=== PATIENT | female | born 1980 | race Caucasian/White ===

== ENCOUNTER 2019-10-23 09:38 | Emergency (ER) | payer SELFPAY ==
--- NOTE | 2019-10-23 09:48 | ED_ITS ---
HPI - General Adult General: Chief complaint: Nausea/Vomiting/Diarrhea Stated complaint: N/V Time Seen by Provider: 10/23/19 09:43 History of Present Illness: HPI narrative: 39 yo female complains of recurrent vomiting whenever she eats. She denies any hematochezia. No melena hematemesis coffee-ground emesis. She denies any fever. Associated symptoms: Reports nausea and vomiting; Deny chest pain, dyspnea, malaise or rash Review of Systems Const: Denies: fever, chills, body aches, change in appetite, fatigue or malaise ENMT: Denies: throat pain, ear pain, nasal discharge or nasal congestion Card: Denies: chest pain, edema, shortness of breath on exertion or shortness of breath when lying down Resp: Denies: shortness of breath, productive cough or non-productive cough GI: Reports: nausea and vomiting; Denies: abdominal pain, vomiting blood, coffee grounds in vomit, diarrhea, constipation, bloating, blood in stool or black tarry stool : Denies: flank pain, difficulty urinating, painful urination, urinary frequency or urinary urgency Skin/Breast: Denies: rash or itching PFS ED PFSH: Social History (Updated 09/06/19 @ 10:49 by Danisha Choudhury LPN) Smoking and tobacco status: never smoked Physical Exam Const: COMMON NORMALS: no apparent distress GENERAL APPEARANCE: cooperative and comfortable ORIENTATION/CONSCIOUSNESS: Yes awake, Yes oriented to person, Yes oriented to place and Yes oriented to time HENMT: COMMON NORMALS: normocephalic, head/scalp atraumatic, hearing grossly normal bilaterally, external ears normal, EAC's normal, TM's normal bilaterally, nasal mucous membranes and turbinates normal, moist oral mucous membranes and oropharynx normal HEAD & SCALP: normocephalic and atraumatic NOSE: nasal mucous membranes and turbinates normal EXTERNAL EAR: Yes external ears normal EXTERNAL AUDITORY CANAL: EAC's normal TYMPANIC MEMBRANE: TM's normal bilaterally Eye: COMMON NORMALS: PERRL, EOMs intact bilaterally, conjunctivae normal and no scleral icterus CONJUNCTIVA: Yes conjunctivae normal PUPIL: Yes PERRL Neck/C-Spine: COMMON NORMALS: full ROM, no lymphadenopathy, supple and no JVD Lymph: LYMPHATIC: no lymphadenopathy noted and no lymphedema noted Resp: COMMON NORMALS: normal respiratory effort, no retractions, no use of accessory muscles and clear to auscultation bilaterally AUSCULTATION: clear to auscultation bilaterally Cardio: COMMON NORMALS: no JVD, regular rate, regular rhythm and no murmurs RATE: regular rate RHYTHM: regular rhythm GI: COMMON NORMALS: soft to palpation and no hepatosplenomegaly AUSCULTATION: Yes normoactive bowel sounds PALPATION: Yes soft, Yes tender (Minimally tender throughout the abdomen no guarding no rebound no rigidity no peritoneal signs), No guarding, No rigid and Yes no hepatosplenomegaly Extremity: COMMON NORMALS: normal to inspection, normal capillary refill, no clubbing, cyanosis or edema, no calf tenderness and no pedal edema Neuro: SENSORIUM/ORIENTATION: Yes oriented to person, Yes oriented to place and Yes oriented to time Skin: COMMON NORMALS: no rashes or lesions noted GENERAL SKIN EXAM: no rashes or lesions noted Course Vital Signs: Vital signs: Vital Signs Temperature 98.7 F 10/23/19 09:51 Pulse Rate 75 10/23/19 11:01 Respiratory Rate 16 10/23/19 11:01 Blood Pressure 148/85 10/23/19 11:01 Pulse Oximetry 97 10/23/19 11:01 MDM - General Adult MDM Narrative: Medical decision making narrative: Exam does not show an acute abdomen. Patient given IV fluids feeling much better will discharge home on Zofran. Incidentally she does have a bladder infection started on nitrofurantoin for that continue the famotidine. Follow-up with primary care physician or return to the emergency room as not begin to improve. Clear liquid diet for the next 24-48hours. Lab Data: Labs: Lab Results 10/23/19 10/23/19 10/23/19 Range/Units 09:55 09:55 10:07 WBC 6.1 (4.0-10.0) 10^3/ uL RBC 4.78 (4.1-5.3) 10^6/u L Hgb 14.5 (11.5-15.3) g/dL Hct 43.5 (37.0-47.0) % MCV 91.0 (81-99) fL MCH 30.3 (28.0-34.0) pg MCHC 33.3 (30.0-36.0) g/dL RDW 12.0 L (12.1-15.1) % Plt Count 264 (130-400) 10^3/c mm MPV 10.1 (7.4-10.4) fL Neut % (Auto) 69.0 % Lymph % (Auto) 23.7 % [place] % (Auto) 5.7 % Eos % (Auto) 0.7 % Baso % (Auto) 0.7 % Neut # (Auto) 4.2 (1.8-7.7) 10^3/u L Lymph # (Auto) 1.5 (0.8-4.8) 10^3/u L [place] # (Auto) 0.4 (0.2-0.9) 10^3/u L Eos # (Auto) 0.0 (0.0-0.8) 10^3/u L Baso # (Auto) 0.0 (0.0-0.1) 10^3/u L Nucleated RBC % (a uto) 0 % Nucleated RBCs # 0.0 /100WBC Sodium 140 (136-145) mmol/L Potassium 3.4 L (3.5-5.1) mmol/L Chloride 101 (98-107) mmol/L Carbon Dioxide 24 (22-29) mmol/L Anion Gap 18.4 (5-19) BUN 6 (6-20) mg/dL Creatinine 0.5 (0.5-0.9) mg/dL GFR Calculation 137.4 H (90-130) mL/min Glucose 117 H (65-115) mg/dL Calculated Osmolal ity 287 (285-295) mOsm/k g Calcium 10.1 (8.5-10.5) mg/dL Total Bilirubin 0.8 (0.15-1.2) mg/dL AST 15 (0-32) U/L ALT 23 (0-33) U/L Alkaline Phosphata se 43 (35-105) IU/L Total Protein 7.6 (6.6-8.7) g/dL Albumin 4.6 (3.5-5.2) g/dL Globulin 3.0 (1.3-4.6) g/dL Urine Color Straw (Yellow) Urine Appearance Sl hazy (CLEAR) Urine pH 7.0 (5-7) Ur Specific Gravit y 1.005 (1.005-1.030) Urine Protein Neg (Negative) Urine Glucose (UA) Norm (Normal) Urine Ketones Negative (Negative) Urine Blood Neg (Negative) Urine Nitrate Negative (Negative) Urine Bilirubin Neg (NEGATIVE) Urine Urobilinogen Norm (Negative) mg/dL Ur Leukocyte Saba ase 2+ H (Negative) Urine RBC None (0-2) /hpf Urine WBC 10-15 H (0-5) /hpf Ur Squamous Epith Cells 0-4 H (0-5) Urine Bacteria 1+ H (NONE) Discharge Plan Discharge Patient Disposition: Home, Self-Care Clinical Impression: Gastroenteritis, Cystitis Condition: Stable Prescriptions: New Zofran 4 mg tablet 4 mg PO Q6H PRN (Reason: nausea and vomiting) Qty: 20 RF: 0 nitrofurantoin macrocrystal 100 mg capsule 100 mg PO BID 7 Days Qty: 14 RF: 0 No Action famotidine [Pepcid AC] 10 mg tablet 10 mg PO QDAY RF: 0 azithromycin 250 mg tablet See Rx Instructions PO .COMPLEX Qty: 6 RF: 0 Discharge Orders: Discharge Order (Routine); Ordered 10/23/19 Ordered By: Trevor Montez Referrals: [facility] [Other] Discharge Diet: Clear Liquid Discharge Activity: Increase activity as tolerated Patient Instructions: Clear Liquid Diet (ED) Activity Restrictions/Additional Instructions: Clear liquid diet for 24 to 48 hours and advance as tolerated Discharge Date/Time: 10/23/19 11:01 Coding Level of Care Code ED Milk Sampler for Clifton Werner
[2019-10-23 09:49] VITALS: BMI 31.1
[2019-10-23 09:51] VITALS: BP 162/101; PULSE 93; RESP 18; TEMP 37.1; O2SAT 98
[2019-10-23 10:04] LABS: Basophils % 0.7 %; Eosinophils % 0.7 %; Hematocrit 43.5 % (37.0-47.0); Hemoglobin 14.5 g/dL (11.5-15.3); Lymphocytes # 1.5 10^3/uL (0.8-4.8); Lymphocytes % 23.7 %; Mean Corpuscular HGB Conc 33.3 g/dL (30.0-36.0); Mean Corpuscular Hemoglobin 30.3 pg (28.0-34.0); Mean Platelet Volume 10.1 fL (7.4-10.4); Monocytes # 0.4 10^3/uL (0.2-0.9); Monocytes % 5.7 %; Neutrophils # 4.2 10^3/uL (1.8-7.7); Nucleated Red Blood Cells % 0 %; Platelet Count 264 10^3/cmm (130-400); Red Blood Count 4.78 10^6/uL (4.1-5.3); White Blood Count 6.1 10^3/uL (4.0-10.0)
[2019-10-23] MEDS: sodium chloride 0.9% 1,000 ML 999 ML IV (10:10)
[2019-10-23] MEDS: sodium chlor 0.9% + KCl 20 mEq 20 MEQ/1,000 ML BAG 125 MEQ IV (10:10)
[2019-10-23] MEDS: ondansetron 2 mg/ML SDV 2 mL 4 MG IVP (10:10)
--- NOTE | 2019-10-23 10:11 | PC.NURSE ---
Urine collected by roosevelt balbuena
[2019-10-23 10:16] LABS: Alanine Aminotransferase 23 U/L (0-33); Albumin Level 4.6 g/dL (3.5-5.2); Alkaline Phosphatase 43 IU/L (35-105); Anion Gap 18.4 (5-19); Aspartate Amino Transferase 15 U/L (0-32); Blood Urea Nitrogen 6 mg/dL (6-20); Calcium 10.1 mg/dL (8.5-10.5); Carbon Dioxide 24 mmol/L (22-29); Chloride 101 mmol/L (98-107); Glomerular Filtration Rate 137.4 mL/min (90-130); Glucose 117 mg/dL (65-115); Osmolality Calculated 287 mOsm/kg (285-295); Potassium 3.4 mmol/L (3.5-5.1); Sodium 140 mmol/L (136-145); Total Bilirubin 0.8 mg/dL (0.15-1.2); Total Protein 7.6 g/dL (6.6-8.7)
[2019-10-23 10:28] LABS: Add Urine Microscopic? YES; Bilirubin Urine Neg (NEGATIVE); Blood Urine Neg (Negative); Glucose Urine UA Norm (Normal); Ketones Urine Negative (Negative); Leukocyte Esterase Urine 2+ (Negative); Nitrate Urine Negative (Negative); Protein Urine Neg (Negative); Specific Gravity, Urine 1.005 (1.005-1.030); Urine Appearance SL Hazy (CLEAR); Urine Color Straw (Yellow); Urobilinogen Urine Norm (Negative)
[2019-10-23 10:33] LABS: Add Urine Culture? No; Bacteria Urine 1+; Squamous Epithelial Cell Urine 0-4 (0-5)
[2019-10-23 11:01] VITALS: BP 148/85; PULSE 75; RESP 16; O2SAT 97
== END 2019-10-23 11:01 | disposition home or self-care (01) ==
PROVIDERS: Emergency Provider Family Medicine
DX: K52.9 Noninfective gastroenteritis and colitis, unspecified (principal); N30.90 Cystitis, unspecified without hematuria
CPT/HCPCS: 12345; 36415; 80053; 81001; 85025; 96365; 96375; 99282; 99283; J2405; J7030

== ENCOUNTER → 2019-11-09 16:48 | Outpatient (BNVA) | payer SELFPAY | PROVIDERS: Visit Provider Nurse Practitioner Family | DX: R11.2 Nausea with vomiting, unspecified (principal) | CPT/HCPCS: 81000; 81025 ==

== ENCOUNTER 2019-11-22 19:45 | Emergency (ER) | payer SELFPAY ==
[2019-11-22 20:08] VITALS: BP 147/100; PULSE 77; RESP 17; TEMP 36.8; O2SAT 98; BMI 29.8
--- NOTE | 2019-11-22 20:54 | PC.NURSE ---
PATIENT STATES SHE HAS BEEN HAVING THE NAUSEA/COUGHING/VOMITING FOR THE LAST THREE MONTHS. PATIENT STATES SHE IS NOT HAVING PAIN TODAY BUT THAT SHE HAD PAIN YESTERDAY BILATERAL LOWER QUADRANTS IN THE ABDOMEN.
[2019-11-22 20:58] VITALS: BP 140/78; PULSE 76; RESP 16; O2SAT 98
--- NOTE | 2019-11-22 21:12 | ED_ITS ---
HPI - Nausea/Vomiting/Diarrhea General: Chief complaint: Nausea/Vomiting/Diarrhea Stated complaint: n/v x 1 month Time Seen by Provider: 11/22/19 20:51 Source: patient Mode of arrival: ambulatory Limitations: no limitations History of Present Illness: HPI Narrative: 39-year-old female patient who presents to the emergency department with complaints of vomiting after coughing. The patient states that she coughs so hard that she eventually vomits. During her coughing fits also she has some incontinence of urine. No fever, no shortness of breath, no chest pain. No abdominal pain. No epigastric pain. No prior history of dyspepsia. She was seen here in this ED in the past and was told she had a UTI, but went to an urgent care and was diagnosed with gastritis and was given Pepcid. She says the Pepcid helped a little bit however symptoms are back again. Symptoms are usually worse after she eats. MD elicited complaint: nausea and vomiting Onset (ago): month(s) (1) Description of vomiting: food contents Associated nausea: Yes Associated abdominal pain: No Associated symtoms: Reports nausea; Denies change in vision, chest pain, dysuria, headache(s) or palpitations Review of Systems General: Reports: 10 or more systems reviewed and unremarkable except in HPI and below Const: Denies: fever, chills or body aches Eyes: Denies: change in vision or blurry vision ENMT: Denies: throat pain, enlarged tonsils, painful swallowing, hoarseness, mouth pain or swelling of lips/tongue Card: Denies: chest pain, palpitations, irregular heart rhythm, edema or swelling of feet/ankles Resp: Reports: non-productive cough; Denies: shortness of breath or productive cough GI: Reports: nausea : Denies: flank pain, difficulty urinating, painful urination, urinary frequency, urinary urgency or urinary hesitancy Musc: Denies: neck pain, back pain or extremity swelling Skin/Breast: Denies: rash, itching or redness Neuro: Denies: headache, numbness in extremities or weakness in extremities Endo: Denies: excessive urination, excessive thirst or tired all the time [facility] ED PFSH: Social History (Updated 09/06/19 @ 10:49 by Danisha Choudhury LPN) Smoking and tobacco status: former smoker Physical Exam Const: COMMON NORMALS: no apparent distress, average body habitus, oriented x3, no limitations, healthy appearing, alert and well nourished HENMT: COMMON NORMALS: normocephalic, head/scalp atraumatic and moist oral mucous membranes HEAD & SCALP: normocephalic and atraumatic Eye: COMMON NORMALS: PERRL, EOMs intact bilaterally, conjunctivae normal and no scleral icterus CONJUNCTIVA: Yes conjunctivae normal PUPIL: Yes PERRL Neck/C-Spine: COMMON NORMALS: full ROM, supple, no meningeal signs, no JVD and no carotid bruits Chest: COMMONS NORMALS: inspection of chest normal and palpation of chest normal Resp: COMMON NORMALS: normal respiratory effort, no retractions, no use of accessory muscles, clear to auscultation bilaterally and percussion normal AUSCULTATION: clear to auscultation bilaterally PERCUSSION: percussion normal Cardio: COMMON NORMALS: no JVD, regular rate, regular rhythm, S1 normal heart sound, S2 normal heart sound, no gallops, no clicks, no murmurs, no rub and peripheral pulses 2+ throughout RATE: regular rate RHYTHM: regular rhythm HEART SOUNDS: S1 normal and S2 normal PERIPHERAL PULSES: pulses 2+ throughout GI: COMMON NORMALS: normal to inspection, nondistended, normoactive bowel sounds, soft to palpation, non-tender, no hepatosplenomegaly, no masses and no bruits PALPATION: Yes soft and Yes no hepatosplenomegaly : COMMON NORMALS: Yes no CVA tenderness BLADDER/KIDNEY EXAM: Yes no CVA tenderness Back/Pelvis: COMMON NORMALS: no CVA tenderness Extremity: COMMON NORMALS: normal to inspection, full ROM, normal capillary refill, no calf tenderness and no pedal edema Neuro: COMMON NORMALS: oriented x3 SENSORIUM/ORIENTATION: Yes alert MENINGEAL SIGNS: Yes no meningeal signs Skin: COMMON NORMALS: no rashes or lesions noted, no wounds, skin turgor normal, no jaundice, no petechiae and no mottling GENERAL SKIN EXAM: no rashes or lesions noted and turgor normal Course Reevaluation(s): Reevaluation #1: Discussed her lab and imaging findings with her. Negative for acute findings. Explained that going by her symptoms she most likely has GERD as she coughs after eating. We will discharge her home with a prescription for a PPI and an H2 rakesh. She voiced understanding and is in agreement with the plan. Time: 22:55 Vital Signs: Vital signs: Vital Signs Temperature 98.3 F 11/22/19 20:08 Pulse Rate 66 11/22/19 22:48 Respiratory Rate 16 11/22/19 22:48 Blood Pressure 150/84 11/22/19 22:48 Pulse Oximetry 96 11/22/19 22:48 MDM - Nausea/Vomiting/Diarrhea MDM Narrative: Medical decision making narrative: Patient who presents to the emergency department with cough that is causing posttussive vomiting. Cough is usually aggravated by eating. Symptomatology is consistent with acid peptic disease. We will discharge her home on a PPI and an H2 receptor rakesh. She is advised to avoid spicy foods, acidic foods, caffeinated beverages, cigarettes. She is to follow-up with her primary care provider for further evaluation and management. Lab Data: Labs: Lab Results 11/22/19 11/22/19 11/22/19 Range/Units 20:20 20:20 20:57 WBC 8.9 (4.0-10.0) 10^3/ uL RBC 4.69 (4.1-5.3) 10^6/u L Hgb 14.2 (11.5-15.3) g/dL Hct 42.6 (37.0-47.0) % MCV 90.8 (81-99) fL MCH 30.3 (28.0-34.0) pg MCHC 33.3 (30.0-36.0) g/dL RDW 12.1 (12.1-15.1) % Plt Count 251 (130-400) 10^3/c mm MPV 10.7 H (7.4-10.4) fL Neut % (Auto) 69.2 % Lymph % (Auto) 23.2 % [place] % (Auto) 5.8 % Eos % (Auto) 1.0 % Baso % (Auto) 0.6 % Neut # (Auto) 6.2 (1.8-7.7) 10^3/u L Lymph # (Auto) 2.1 (0.8-4.8) 10^3/u L [place] # (Auto) 0.5 (0.2-0.9) 10^3/u L Eos # (Auto) 0.1 (0.0-0.8) 10^3/u L Baso # (Auto) 0.1 (0.0-0.1) 10^3/u L Nucleated RBC % (a uto) 0 % Nucleated RBCs # 0.0 /100WBC Sodium (136-145) mmol/L Potassium (3.5-5.1) mmol/L Chloride (98-107) mmol/L Carbon Dioxide (22-29) mmol/L Anion Gap (5-19) BUN (6-20) mg/dL Creatinine (0.5-0.9) mg/dL GFR Calculation (90-130) mL/min Glucose (65-115) mg/dL Calculated Osmolal ity (285-295) mOsm/k g Calcium (8.5-10.5) mg/dL Total Bilirubin (0.15-1.2) mg/dL AST (0-32) U/L ALT (0-33) U/L Alkaline Phosphata se (35-105) IU/L Total Protein (6.6-8.7) g/dL Albumin (3.5-5.2) g/dL Globulin (1.3-4.6) g/dL Lipase (13-60) U/L HCG, Qual (Negative) Urine Color Yellow (Yellow) Urine Appearance Clear (CLEAR) Urine pH 6.5 (5-7) Ur Specific Gravit y 1.000 L (1.005-1.030) Urine Protein Neg (Negative) Urine Glucose (UA) Norm (Normal) Urine Ketones Negative (Negative) Urine Blood Neg (Negative) Urine Nitrate Negative (Negative) Urine Bilirubin Neg (NEGATIVE) Urine Urobilinogen Norm (Negative) mg/dL Ur Leukocyte Saba ase Negative (Negative) Urine RBC None (0-2) /hpf Urine WBC None (0-5) /hpf Ur Squamous Epith Cells 0-4 H (0-5) Urine Bacteria Trace (NONE) Urine Opiates Scre en Negative (Negative) ng/mL Ur Barbiturates Sc reen Negative (Negative) ng/mL Ur Phencyclidine S crn Negative (Negative) ng/mL Ur Amphetamines Sc reen Negative (Negative) ng/mL U Benzodiazepines Scrn Negative (Negative) ng/mL Urine Cocaine Scre en Negative (Negative) ng/mL U Marijuana (THC) Screen Negative (Negative) ng/mL 11/22/19 11/22/19 Range/Units 20:57 20:57 WBC (4.0-10.0) 10^3/ uL RBC (4.1-5.3) 10^6/u L Hgb (11.5-15.3) g/dL Hct (37.0-47.0) % MCV (81-99) fL MCH (28.0-34.0) pg MCHC (30.0-36.0) g/dL RDW (12.1-15.1) % Plt Count (130-400) 10^3/c mm MPV (7.4-10.4) fL Neut % (Auto) % Lymph % (Auto) % [place] % (Auto) % Eos % (Auto) % Baso % (Auto) % Neut # (Auto) (1.8-7.7) 10^3/u L Lymph # (Auto) (0.8-4.8) 10^3/u L [place] # (Auto) (0.2-0.9) 10^3/u L Eos # (Auto) (0.0-0.8) 10^3/u L Baso # (Auto) (0.0-0.1) 10^3/u L Nucleated RBC % (a uto) % Nucleated RBCs # /100WBC Sodium 141 (136-145) mmol/L Potassium 3.4 L (3.5-5.1) mmol/L Chloride 104 (98-107) mmol/L Carbon Dioxide 25 (22-29) mmol/L Anion Gap 15.4 (5-19) BUN 6 (6-20) mg/dL Creatinine 0.6 (0.5-0.9) mg/dL GFR Calculation 111.3 (90-130) mL/min Glucose 100 (65-115) mg/dL Calculated Osmolal ity 288 (285-295) mOsm/k g Calcium 9.8 (8.5-10.5) mg/dL Total Bilirubin 0.5 (0.15-1.2) mg/dL AST 14 (0-32) U/L ALT 22 (0-33) U/L Alkaline Phosphata se 43 (35-105) IU/L Total Protein 7.5 (6.6-8.7) g/dL Albumin 4.7 (3.5-5.2) g/dL Globulin 2.8 (1.3-4.6) g/dL Lipase 31 (13-60) U/L HCG, Qual Negative (Negative) Urine Color (Yellow) Urine Appearance (CLEAR) Urine pH (5-7) Ur Specific Gravit y (1.005-1.030) Urine Protein (Negative) Urine Glucose (UA) (Normal) Urine Ketones (Negative) Urine Blood (Negative) Urine Nitrate (Negative) Urine Bilirubin (NEGATIVE) Urine Urobilinogen (Negative) mg/dL Ur Leukocyte Saba ase (Negative) Urine RBC (0-2) /hpf Urine WBC (0-5) /hpf Ur Squamous Epith Cells (0-5) Urine Bacteria (NONE) Urine Opiates Scre en (Negative) ng/mL Ur Barbiturates Sc reen (Negative) ng/mL Ur Phencyclidine S crn (Negative) ng/mL Ur Amphetamines Sc reen (Negative) ng/mL U Benzodiazepines Scrn (Negative) ng/mL Urine Cocaine Scre en (Negative) ng/mL U Marijuana (THC) Screen (Negative) ng/mL Imaging Data^: CXR: Attestation: I personally reviewed and interpreted this imaging study as arnel neil: My impression: Negative for acute findings Discharge Plan Discharge Patient Disposition: Home, Self-Care Clinical Impression: Gastroesophageal reflux disease, Post-tussive vomiting Condition: Stable Prescriptions: New pantoprazole 40 mg tablet,delayed release (DR/EC) 40 mg PO DAILY Qty: 14 RF: 0 albuterol sulfate 90 mcg/actuation HFA aerosol inhaler 4 inh INHALATION Q4H PRN (Reason: shortness of breath or wheezing) Qty: 8.5 RF: 0 Continued ondansetron HCl [Zofran] 4 mg tablet 4 mg PO Q6H PRN (Reason: nausea and vomiting) Qty: 20 RF: 0 nitrofurantoin monohyd/m-cryst 100 mg capsule RF: 0 Changed Pepcid AC 10 mg tablet 40 mg PO QDAY Qty: 30 RF: 0 Discharge Orders: Discharge Order (Routine); Ordered 11/22/19 Ordered By: Micah Baptiste Referrals: [facility] [Other] Patient Instructions: Diet for Ulcers and Gastritis (ED), Gastroesophageal Reflux Disease (ED) Activity Restrictions/Additional Instructions: Return for any new or worsening symptoms. Take the medications as prescribed. You may need to follow-up with your primary care provider to get testing for H. pylori which is a bacteria that causes stomach ulcers. You may also be referred for an upper GI endoscopy if your primary care provider feels it is necessary. Avoid acidic foods, spicy foods, caffeinated beverages, cigarettes. Follow-up with your primary care provider within 1 week. Coding Level of Care Code ED Chief Operator Hydroformer for Chg Fwd Exam Comprehensive
--- NOTE | 2019-11-22 21:19 | XR_ITS ---
WS: [id number] PORTABLE CHEST HISTORY: cough COMPARISON: 08/11/2012 Lungs are clear and well expanded. No pleural effusion or pneumothorax. Cardiac size: Normal. Mediastinum/Aorta: Normal mediastinum. No osseous abnormality seen. XR/XR chest 1V portable [id number] IMPRESSION: Unremarkable portable chest.
[2019-11-22 21:20] LABS: Amphetamines Screen Urine Negative (Negative); Barbiturates Screen Urine Negative (Negative); Benzodiazepines Screen Urine Negative (Negative); Cocaine Screen Urine Negative (Negative); Opiate Screen Urine Negative (Negative); PCP Screen Urine Negative (Negative); THC Screen Urine Negative (Negative)
[2019-11-22 21:21] LABS: Add Urine Culture? No; Bacteria Urine TRACE; Bilirubin Urine Neg (NEGATIVE); Blood Urine Neg (Negative); Glucose Urine UA Norm (Normal); Ketones Urine Negative (Negative); Leukocyte Esterase Urine Negative (Negative); Nitrate Urine Negative (Negative); Protein Urine Neg (Negative); Squamous Epithelial Cell Urine 0-4 (0-5); Urine Appearance Clear (CLEAR); Urine Color Yellow (Yellow); Urobilinogen Urine Norm (Negative); pH Urine 6.5 (5-7)
[2019-11-22 21:45] LABS: Basophils # 0.1 10^3/uL (0.0-0.1); Basophils % 0.6 %; Eosinophils # 0.1 10^3/uL (0.0-0.8); Hematocrit 42.6 % (37.0-47.0); Hemoglobin 14.2 g/dL (11.5-15.3); Lymphocytes # 2.1 10^3/uL (0.8-4.8); Lymphocytes % 23.2 %; Mean Corpuscular HGB Conc 33.3 g/dL (30.0-36.0); Mean Corpuscular Hemoglobin 30.3 pg (28.0-34.0); Mean Corpuscular Volume 90.8 fL (81-99); Mean Platelet Volume 10.7 fL (7.4-10.4); Monocytes # 0.5 10^3/uL (0.2-0.9); Monocytes % 5.8 %; Neutrophils # 6.2 10^3/uL (1.8-7.7); Neutrophils % 69.2 %; Nucleated Red Blood Cells % 0 %; Platelet Count 251 10^3/cmm (130-400); Red Blood Count 4.69 10^6/uL (4.1-5.3); Red Cell Distribution Width 12.1 % (12.1-15.1); White Blood Count 8.9 10^3/uL (4.0-10.0)
[2019-11-22 22:14] VITALS: BP 124/76; PULSE 75; RESP 16; O2SAT 97
[2019-11-22 22:35] LABS: Alanine Aminotransferase 22 U/L (0-33); Albumin Level 4.7 g/dL (3.5-5.2); Alkaline Phosphatase 43 IU/L (35-105); Anion Gap 15.4 (5-19); Aspartate Amino Transferase 14 U/L (0-32); Blood Urea Nitrogen 6 mg/dL (6-20); Calcium 9.8 mg/dL (8.5-10.5); Carbon Dioxide 25 mmol/L (22-29); Chloride 104 mmol/L (98-107); Globulin 2.8 g/dL (1.3-4.6); Glomerular Filtration Rate 111.3 mL/min (90-130); Glucose 100 mg/dL (65-115); Lipase 31 U/L (13-60); Osmolality Calculated 288 mOsm/kg (285-295); Potassium 3.4 mmol/L (3.5-5.1); Sodium 141 mmol/L (136-145); Total Bilirubin 0.5 mg/dL (0.15-1.2); Total Protein 7.5 g/dL (6.6-8.7)
[2019-11-22 22:40] LABS: HCG, Serum Qual Negative (Negative)
[2019-11-22 22:48] VITALS: BP 150/84; PULSE 66; RESP 16; O2SAT 96
[2019-11-22] MEDS: famotidine 20 mg Tablet 40 MG PO (23:13)
[2019-11-22] MEDS: pantoprazole DR 40 mg Tablet PO (23:13)
[2019-11-22 23:14] VITALS: BP 144/88; PULSE 63; RESP 16; O2SAT 97
== END 2019-11-22 23:16 | disposition home or self-care (01) ==
PROVIDERS: Emergency Medicine; Emergency Provider Family Medicine
DX: K21.9 Gastro-esophageal reflux disease without esophagitis (principal); R11.10 Vomiting, unspecified; Z87.891 Personal history of nicotine dependence
CPT/HCPCS: 12345; 36415; 71045; 80053; 80306; 81001; 83690; 84703; 85025; 99282; 99283

== ENCOUNTER 2020-02-19 19:39 | Emergency (ER) | payer SELFPAY ==
[2020-02-19 19:49] VITALS: BP 132/88; PULSE 84; RESP 18; TEMP 36.8; O2SAT 98; BMI 29.2
--- NOTE | 2020-02-19 20:07 | W.ED.HA ---
HPI - Headache General: Chief Complaint: Headache Stated Complaint: franklin Time Seen by Provider: 02/19/20 20:02 Source: patient Mode of arrival: ambulatory Limitations: no limitations History of Present Illness: HPI Narrative: 39-year-old female who states she had a headache that is been off and on over the last week and a half. States that it feels like her previous migraines and has have photophobia and phonophobia. States improved with rest. States her headache is currently 7 out of 10. She denies this being the worst headache of her life denies that it was sudden onset. Denies any vomiting or diarrhea. MD elicited complaint: headache and migraine Onset (ago): week(s) Onset description: gradually Severity: moderate Quality & Timing: aching Exacerbating factors: light and noise Relieving factors: rest Associated symptoms: Deny chest pain, fever(s), nausea, rash or vomiting Review of Systems Const: Denies: fever(s), chills, body aches or change in appetite Eyes: Denies: blurry vision or eye discomfort ENMT: Denies: throat pain or dental pain Card: Denies: chest pain Resp: Denies: dyspnea GI: Denies: abdominal pain, nausea, vomiting or diarrhea : Denies: dysuria Musc: Denies: neck pain or back pain Skin/Breast: Denies: rash Neuro: Reports: headache(s) Psych: Denies: depression Dilan/Lymph: Denies: easy bruising All/Imm: Denies: urticaria PFSH ED PFSH: Social History Smoking and tobacco status: former smoker Female Reproductive History: Date of last menstrual period: 02/02/20 Physical Exam Const: COMMON NORMALS: no acute distress, patient oriented x3 and healthy appearing HENMT: COMMON NORMALS: normocephalic and atraumatic HEAD & SCALP: normocephalic and atraumatic Eye: COMMON NORMALS: Equal, round and reactive pupils present and EOMs intact bilaterally PUPIL: Yes Equal, round and reactive pupils present Neck/C-Spine: COMMON NORMALS: full ROM and supple Chest: COMMONS NORMALS: normal inspection of the chest and normal palpation of entire chest wall Resp: COMMON NORMALS: normal respiratory effort, No retractions, No use of accessory muscles and clear to auscultation bilaterally AUSCULTATION: clear to auscultation bilaterally Cardio: COMMON NORMALS: regular rate, regular rhythm and No murmurs present (Cardio) RATE: regular rate RHYTHM: regular rhythm GI: COMMON NORMALS: Normal to inspection, nondistended, normoactive bowel sounds present, Soft to palpation, non-tender and no masses PALPATION: Yes Soft to palpation Extremity: COMMON NORMALS: normal to inspection and full ROM Neuro: COMMON NORMALS: patient oriented x3, moves all extremities and no focal motor deficits Psych: COMMON NORMALS: mental status grossly normal, Normal thought process present and cooperative THOUGHT PROCESS: Normal thought process present Skin: COMMON NORMALS: no rashes or lesions noted and no wounds GENERAL SKIN EXAM: no rashes or lesions noted Course Vital Signs: Vital signs: Vital Signs Temperature 98.3 F 02/19/20 19:49 Pulse Rate 81 02/19/20 20:36 Respiratory Rate 14 02/19/20 20:36 Blood Pressure 125/83 02/19/20 20:36 Pulse Oximetry 98 02/19/20 20:36 MDM - Headache MDM Narrative: Medical decision making narrative: Patient presents with a headache that is likely a migraine headache. She has no signs of meningitis or subarachnoid hemorrhage. Patient is stable for discharge and patient was given Reglan and Benadryl and Toradol here. She is to follow-up with her primary care doctor in 5 to 7 days and return to ER if worsening. She understands and agrees to plan. Discharge Plan Discharge Patient Disposition: Home Clinical Impression: Migraine Qualifiers: Migraine type: unspecified Status migrainosus presence: without status migrainosus Intractability: not intractable Qualified Code(s): G43.909 - Migraine, unspecified, not intractable, without status migrainosus Condition: Stable Prescriptions: No Action ondansetron HCl [Zofran] 4 mg tablet 4 mg PO Q6H PRN (Reason: nausea and vomiting) Qty: 20 RF: 0 nitrofurantoin monohyd/m-cryst 100 mg capsule RF: 0 pantoprazole 40 mg tablet,delayed release (DR/EC) 40 mg PO DAILY Qty: 14 RF: 0 Pepcid AC 10 mg tablet 40 mg PO QDAY Qty: 30 RF: 0 albuterol sulfate 90 mcg/actuation HFA aerosol inhaler 4 inh INHALATION Q4H PRN (Reason: shortness of breath or wheezing) Qty: 8.5 RF: 0 Discharge Orders: Discharge Order (Routine); Ordered 02/19/20 Ordered By: Marc Yuan Discharge Diet: Advance as tolerated Discharge Activity: Resume usual activity Patient Instructions: Migraine Headache (ED) Discharge Date/Time: 02/19/20 20:36 Coding Level of Care Code ED Petroleum Refinery Operator for Chg Fwd Exam Comprehensive
[2020-02-19] MEDS: metoclopramide 5 mg/mL SDV 2 mL 10 MG IM (20:19)
[2020-02-19] MEDS: ketorolac 60 mg/2 mL INJ IM (20:19)
[2020-02-19] MEDS: diphenhydrAMINE 50 mg/mL SDV 1mL IM (20:19)
[2020-02-19 20:36] VITALS: BP 125/83; PULSE 81; RESP 14; O2SAT 98
== END 2020-02-19 20:36 | disposition home or self-care (01) ==
PROVIDERS: Emergency Provider Emergency Medicine
DX: G43.909 Migraine, unspecified, not intractable, without status migrainosus (principal); Z87.891 Personal history of nicotine dependence
CPT/HCPCS: 12345; 96372; 99281; 99283; J1200; J1885; J2765

== ENCOUNTER 2020-02-24 11:58 | Emergency (ER) | payer SELFPAY ==
[2020-02-24 12:03] VITALS: BP 159/101; PULSE 86; RESP 16; TEMP 36.7; O2SAT 96; BMI 29.2
[2020-02-24 12:06] VITALS: RESP 18
--- NOTE | 2020-02-24 12:35 | W.ED.ANXIETY ---
HPI - Anxiety General: Chief Complaint: Anxiety Stated Complaint: ANXIETY Time Seen by Provider: 02/24/20 12:10 History of Present Illness: HPI narrative: 39-year-old female patient presents to the emergency department with increased anxiety. She reports started counseling approximately 10 days ago. She reports current custody wiseman with her child in a divorce case. She reports increased anxiety, not able to sleep, she does not wish to go to the stress unit at this time. She denies suicidal/homicidal ideation plans or thoughts. Her mother reports she has been talking to herself. Patient reports she is hearing voices but is on occasion. She reports voices are telling her soon-to-be ex-spouse may obtain custody of her son. She is requesting something to help with anxiety. She reports is currently not on any medication for anxiety. She denies illicit substance use. She denies smoking. complaint: anxiety and heart racing Onset (ago): week(s) (2) Severity: moderate Quality: intermittent Provoking factors: emotional stress Relieving factors: deep breaths Exacerbating factors: thinking about event Associated symptoms: Reports no associated symptoms; Deny chest pain, chills, diaphoresis, fever(s), headache(s), nausea, palpitations or vomiting Review of Systems General: Reports: 10 or more systems reviewed and unremarkable except in HPI and below Const: Denies: fever(s), chills or diaphoresis Eyes: Denies: blurry vision or eye redness ENMT: Denies: throat pain, dental pain or disequilibrium Card: Denies: chest pain, palpitations or irregular heart rhythm Resp: Denies: dyspnea, productive cough, non-productive cough or wheezing GI: Denies: abdominal pain, nausea or vomiting : Denies: difficulty voiding or dysuria Musc: Denies: back pain Skin/Breast: Denies: rash or pruritus Neuro: Denies: headache(s), weakness in extremities or behavioral changes Psych: Reports: anxiety, sleeping less, difficulty concentrating and auditory hallucinations; Denies: visual hallucinations, tactile hallucinations, suicidal ideation or homicidal ideation Dilan/Lymph: Denies: easy bruising PFSH ED PFSH: Social History Smoking and tobacco status: former smoker Current gender identity: Female Female Reproductive History: Date of last menstrual period: 02/02/20 Physical Exam Const: COMMON NORMALS: no acute distress, patient oriented x3, healthy appearing and alert GENERAL APPEARANCE: cooperative, comfortable and well hydrated HENMT: COMMON NORMALS: normocephalic, Normal external nose present and moist oral mucous membranes HEAD & SCALP: normocephalic NOSE: Normal external nose present Eye: COMMON NORMALS: Equal, round and reactive pupils present and EOMs intact bilaterally GENERAL EYE: appearance normal, both eyes and all related structures PUPIL: Yes Equal, round and reactive pupils present Neck/C-Spine: COMMON NORMALS: full ROM and no lymphadenopathy GENERAL: Yes normal visual inspection and Yes trachea midline CERVICAL SPINE: Yes cervical ROM normal Lymph: LYMPHATIC: no lymphadenopathy noted Chest: COMMONS NORMALS: normal inspection of the chest Resp: COMMON NORMALS: normal respiratory effort and clear to auscultation bilaterally AUSCULTATION: clear to auscultation bilaterally Cardio: COMMON NORMALS: regular rhythm, S1 normal heart sound present and S2 normal heart sound present RHYTHM: regular rhythm HEART SOUNDS: S1 normal heart sound present and S2 normal heart sound present GI: COMMON NORMALS: Soft to palpation and non-tender INSPECTION: Yes normal to inspection PALPATION: Yes Soft to palpation : COMMON NORMALS: Yes no CVA tenderness BLADDER/KIDNEY EXAM: Yes no CVA tenderness Back/Pelvis: COMMON NORMALS: no CVA tenderness and thoracic and lumbar spine normal to inspection Extremity: COMMON NORMALS: normal to inspection and capillary refill normal Neuro: COMMON NORMALS: patient oriented x3 and no focal motor deficits SENSORIUM/ORIENTATION: Yes alert Psych: COMMON NORMALS: mental status grossly normal, Normal thought process present, cooperative, normal affect, speech normal and activity/motor behavior normal APPEARANCE: Yes grossly normal ATTITUDE: Yes calm ACTIVITY/MOTOR BEHAVIOR: Yes appropriate eye contact SPEECH: Yes normal speech THOUGHT PROCESS: Normal thought process present THOUGHT CONTENT: Yes Normal thought content present MEMORY/COGNITION: Yes memory grossly intact INSIGHT: Good insight present (Psych) JUDGEMENT: Good judgement present (Psych) Skin: COMMON NORMALS: no rashes or lesions noted and turgor normal GENERAL SKIN EXAM: no rashes or lesions noted and turgor normal Course ED course: 39-year-old female patient presents to the emergency department with complaints of anxiety. She does not have suicidal/homicidal ideation plans or thoughts, reports few auditory hallucinations but could be related to altered sleep pattern secondary to anxiety. She has appointment with her counselor next week, she also has appointment with psychiatric provider for initiation of anxiety medication. She was requesting something short-term, plans to follow-up as scheduled with behavioral health. She is aware that if suicidal/homicidal ideation plans thoughts occur or if auditory hallucinations worsen, she will need to return to the emergency department. Her and her mother feel comfortable with this plan. She will be monitored by her mother who will monitor behaviors. Vital Signs: Vital signs: Vital Signs Temperature 98.1 F 02/24/20 12:03 Pulse Rate 86 02/24/20 12:03 Respiratory Rate 18 02/24/20 12:06 Blood Pressure 159/101 02/24/20 12:03 Pulse Oximetry 96 02/24/20 12:03 Discharge Plan Discharge Patient Disposition: Home Clinical Impression: Acute anxiety, Panic disorder Condition: Stable Prescriptions: New hydroxyzine HCl 50 mg tablet 50 mg PO TID PRN (Reason: for anxiety) Qty: 10 RF: 0 No Action ondansetron HCl [Zofran] 4 mg tablet 4 mg PO Q6H PRN (Reason: nausea and vomiting) Qty: 20 RF: 0 nitrofurantoin monohyd/m-cryst 100 mg capsule RF: 0 pantoprazole 40 mg tablet,delayed release (DR/EC) 40 mg PO DAILY Qty: 14 RF: 0 Pepcid AC 10 mg tablet 40 mg PO QDAY Qty: 30 RF: 0 albuterol sulfate 90 mcg/actuation HFA aerosol inhaler 4 inh INHALATION Q4H PRN (Reason: shortness of breath or wheezing) Qty: 8.5 RF: 0 Discharge Orders: Discharge Order (Routine); Ordered 02/24/20 Ordered By: Carol Vaughn Discharge Diet: Usual diet Discharge Activity: Resume usual activity Patient Instructions: Stress (ED), Anxiety (ED) Activity Restrictions/Additional Instructions: Continue follow-up with behavioral health as scheduled this week, do not miss appointment Take medication as prescribed, do not drive while taking medication as side effect can make you sleepy You may take [id number] melatonin, 1 to 2 mg as needed for sleep. Take medication approximately 1 hour prior to lying down to go to bed. If you develop suicidal/homicidal ideations plans or thoughts, hallucinations that are bothersome/worsening, you will need to return to the emergency room for further evaluation. Discharge Date/Time: 02/24/20 13:08 Coding Level of Care Code ED Manufacturing Controls Engineer for Elig Fwd Exam Comprehensive
== END 2020-02-24 13:08 | disposition home or self-care (01) ==
PROVIDERS: Emergency Provider Nurse Practitioner Family
DX: F41.9 Anxiety disorder, unspecified (principal); F41.0 Panic disorder [episodic paroxysmal anxiety]; Z87.891 Personal history of nicotine dependence
CPT/HCPCS: 12345; 99281

== ENCOUNTER 2020-02-26 19:19 | Inpatient (IN) | payer SELFPAY ==
[2020-02-26 19:42] VITALS: BP 144/94; PULSE 83; RESP 18; TEMP 36.6; O2SAT 97; BMI 29.2
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
[2020-02-26 20:05] VITALS: RESP 16
[2020-02-26 20:23] LABS: Add Urine Microscopic? YES; Bilirubin Urine Neg (NEGATIVE); Blood Urine 2+ (Negative); Glucose Urine UA Norm (Normal); Ketones Urine Negative (Negative); Leukocyte Esterase Urine Trace (Negative); Nitrate Urine Negative (Negative); Protein Urine Neg (Negative); RBC Urine 0-4 /hpf (0-2); Specific Gravity, Urine 1.015 (1.005-1.030); Urine Appearance Cloudy (CLEAR); Urine Color Yellow (Yellow); Urobilinogen Urine Norm (Negative); pH Urine 6 (5-7)
[2020-02-26 20:24] LABS: Bacteria Urine 1+; Mucus Urine 1+
[2020-02-26 20:24] LABS: Basophils % 0.4 %; Eosinophils # 0.1 10^3/uL (0.0-0.8); Eosinophils % 1.2 %; Hematocrit 40.6 % (37.0-47.0); Hemoglobin 13.8 g/dL (11.5-15.3); Lymphocytes # 1.7 10^3/uL (0.8-4.8); Lymphocytes % 23.8 %; Mean Corpuscular Hemoglobin 30.4 pg (28.0-34.0); Mean Corpuscular Volume 89.4 fL (81-99); Mean Platelet Volume 9.8 fL (7.4-10.4); Monocytes # 0.5 10^3/uL (0.2-0.9); Monocytes % 7.1 %; Neutrophils # 4.86 10^3/uL (1.8-7.7); Neutrophils % 67.2 %; Nucleated Red Blood Cells % 0 %; Platelet Count 298 10^3/cmm (130-400); Red Blood Count 4.54 10^6/uL (4.1-5.3); Red Cell Distribution Width 12.3 % (12.1-15.1); White Blood Count 7.2 10^3/uL (4.0-10.0)
[2020-02-26 20:28] LABS: Amphetamines Screen Urine Negative (Negative); Barbiturates Screen Urine Negative (Negative); Benzodiazepines Screen Urine Negative (Negative); Cocaine Screen Urine Negative (Negative); Opiate Screen Urine Negative (Negative); PCP Screen Urine Negative (Negative); THC Screen Urine Negative (Negative)
[2020-02-26 20:38] LABS: Acetaminophen 6.7 ug/mL (10-30); Alanine Aminotransferase 20 U/L (0-33); Albumin Level 4.8 g/dL (3.5-5.2); Alkaline Phosphatase 45 IU/L (35-105); Anion Gap 13.9 (5-19); Aspartate Amino Transferase 16 U/L (0-32); Blood Urea Nitrogen 6 mg/dL (6-20); Calcium 9.2 mg/dL (8.5-10.5); Carbon Dioxide 25 mmol/L (22-29); Chloride 101 mmol/L (98-107); Globulin 2.8 g/dL (1.3-4.6); Glomerular Filtration Rate 137.4 mL/min (90-130); Glucose 106 mg/dL (65-115); Osmolality Calculated 280 mOsm/kg (285-295); Salicylate 0.9 mg/dL (3-10); Sodium 137 mmol/L (136-145); Total Protein 7.6 g/dL (6.6-8.7)
[2020-02-26 20:40] LABS: Alcohol Level < 10 mg/dL (0-10); Potassium 2.9 mmol/L (3.5-5.1)
[2020-02-26] MEDS: LORazepam 2 mg Tablet PO (20:42)
--- NOTE | 2020-02-26 21:00 | ECG_ITS ---
[facility] Test Date: 2020-02-26 Pat Name: Chuck Jordan Department: Room: 125 Gender: Female Ways Operator: : 1980 Requested By: Waldemar Virgen Order Number: [id number] Paredes MD: Lula Baker M.D. Measurements Intervals [place] Rate: 78 P: 52 AL: 155 QRS: 62 QRSD: 105 T: -4 QT: 365 QTc: 417 Interpretive Statements SINUS RHYTHM POSSIBLE LEFT ATRIAL ENLARGEMENT [-0.1mV P WAVE IN V1/V2] NONSPECIFIC ST & T-WAVE ABNORMALITY No previous ECG available for comparison Electronically Signed On 02-27-2020 12:44:56 CDT by Lula Baker M.D. [id number]
[2020-02-26 23:11] VITALS: BP 102/63; PULSE 50; RESP 20; TEMP 37.2; O2SAT 97
[2020-02-26] MEDS: potassium chloride ER 10 mEq Tablet 20 MEQ PO (23:44)
--- NOTE | 2020-02-26 23:54 | PC.NURSE ---
pt given Potassium 20MeQ po per order.
[2020-02-27 06:00] VITALS: BP 123/81; PULSE 79; RESP 16; TEMP 36.9; O2SAT 96
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
[2020-02-27 14:00] VITALS: BP 125/79; PULSE 70; RESP 18; TEMP 36.7; O2SAT 96
[2020-02-27] MEDS: citalopram 20 mg Tablet PO (14:06)
[2020-02-27 20:12] VITALS: BP 150/95; PULSE 80; RESP 12; TEMP 37.2; O2SAT 96
[2020-02-27] MEDS: prazosin 1 mg Capsule PO (20:29)
[2020-02-27] MEDS: ARIPiprazole 10 mg Tablet 5 MG PO (20:29)
[2020-02-27] MEDS: trazodone 50 mg Tablet PO (20:30)
[2020-02-27] MEDS: hyDROXYzine 25 mg Capsule 50 MG PO (20:30)
--- NOTE | 2020-02-27 21:45 | PC.NURSE ---
PT OFFERED PRN SLEEP AIDE AND ANXIETY MED. PT GIVEN TRAZODONE AND VISTARIL ALONG WITH SCHEDULED ABILIFY AND PRAZOSIN.
[2020-02-28 06:00] VITALS: BP 136/78; PULSE 75; RESP 17; TEMP 36.9; O2SAT 96
[2020-02-28] MEDS: citalopram 20 mg Tablet PO (08:41)
--- NOTE | 2020-02-28 08:44 | P.PN_ITS ---
Subjective NPU Subjective: Interval history: I didn't sleep at all last night. Mental Status Exam MSE Comments: Mental Status Exam: Patient is alert interpersonally engaged woman appearing approximately her stated age. Eye contact is good. She is believed to be a reliable informant to the best of her ability is information provided this internally consistent and generally consistent with that in the chart. Appearance: hygiene is fair; no gross neurological deficits., gait is unremarkable; AIMS=0 Speech: Speech is of normal rate and rhythm and easily understood. Thought processes: Thought processes are abstract. Judgment is not adequate for safety. Associations: intact Psychotic processes: There is no indication of guarding or paranoia. There is no attention to the internal stimuli. Auditory are reported as above. Visual hallucinations are denied. Judgment: Insight is poor. Problem solving skills are adequate for safety. Orientation: The patient is oriented to person, place time and situation. Memory: no deficits noted in immediate, intermediate, or remote spheres. Attention: The patient is alert and interpersonally engaged. Language: Verbalizations are coherent. Fund of knowledge: Fund of knowledge is adequate. Affect/Mood: Affect is sad with a depressed mood. Denies suicidal ideation Affective range flat Psychosis: Reality testing is significantly impaired. She does not indicate any questioning of her believe that there is a camera inside her chest. She bel ieves this is logical, reasonable, and a fact. Vitals/I&O/Wt Last Vital Signs Temp 98.4 F 02/28/20 06:00 Pulse 75 02/28/20 06:00 Resp 17 02/28/20 06:00 BP 136/78 02/28/20 06:00 Pulse Ox 96 02/28/20 06:00 Weight last 48 hrs Weight 72.575 kg Data NPU : 02/26/20 20:17 02/26/20 20:17 A&P Additional A&P Information Diagnoses: Major depression?single episode, with psychotic features Posttraumatic stress disorder?chronic Assessment: Chuck Jordan is a 39-year-old woman who is laboring under significant psychosocial stressor and meets criteria for clinical depression. She is psychotic in that she believes something that is bizarre and untrue. She has risk factors for posttraumatic stress disorder and it appears that these problems of flashbacks and hypervigilance are of longstanding. However at this time, she is clinically depressed and would benefit for treatment for the comb ination of depression and psychosis. At this time it is believed that the depression is the predominant diagnosis and that likely the psychosis will improve as the depression resolves. Treatment plan: Due to the psychiatric conditions and treatment listed in the Assessment and Plan - the patient requires continued hospitalization. Will provide a safe and therapeutic environment for patient.. Will continue inpatient treatment to allow for medication adjustment and monitoring. Will continue q15 min safety checks. Patient will be admitted to the adult psychiatric unit and entered into the full array of individual and group therapies as part of that unit protocol. They will be provided 24-hour access to trained psychiatric nursing care and monitoring. Potential benefits and side effects of medications were discussed as well as the time course of expected response to medication changes. Chuck Jordan is a 39-year-old woman who is laboring under significant psychosocial stressor and meets criteria for clinical depression. She is psychotic in that she believes something that is bizarre and untrue. She has risk factors for posttraumatic stress disorder and it appears that these problems of flashbacks and hypervigilance are of longstanding. However at this time, she is clinically depressed and would benefit for treatment for the combination of depression and psychosis. At this time it is believed that the depression is the predominant diagnosis and that likely the psychosis will improve as the depression resolves. Plan: Initiate Celexa 20 mg daily. Potential benefits and side effects of these medications were discussed in detail along with expected course of response. We will also initiate Abilify 5 mg at bedtime along with prazosin 1 mg at bedtime targeting respectively psychosis and PTSD. Hospital day #3: Patient claims that she did not sleep at all last night. Nursing notes and monitoring indicates that she slept throughout the night. Patient received her Abilify and prazosin first doses last night at 9:00. She also received as needed trazodone and Vistaril at the same time. Unclear why. Plan: Day #2 of citalopram, prazosin, and Abilify. Monitor patient's mood, sleep, appetite, and behavior closely. Encourage patient to participate in individual and group therapeutic sessions on the kay. Estimated length of stay 5 days The expected benefits and potential side effects of patient's psychiatric medications were discussed with the patient. The patient understands and consents to treatment.CRITERIA FOR DISCHARGE: stable on medications and no longer an imminent risk Involuntary Hold Information 96 Hour Hold: 96 Hour Involuntary Admission: Yes 96 Hour Hold Ending Date: 03/01/20 96 Hour Hold Ending Time: 21:33 Attestations NPU Medical Necessity Statement*: Patient to remain in the hospital another 3-4 nights for the completion of her 96-hour involuntary commitment. 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
[2020-02-28 13:25] VITALS: BP 124/84; PULSE 74; RESP 18; TEMP 36.8; O2SAT 96
[2020-02-28] MEDS: ARIPiprazole 10 mg Tablet 5 MG PO (20:25)
[2020-02-28] MEDS: trazodone 50 mg Tablet PO (20:26)
[2020-02-28] MEDS: hyDROXYzine 25 mg Capsule 50 MG PO (20:26)
[2020-02-28] MEDS: prazosin 1 mg Capsule PO (20:26)
[2020-02-28 20:36] VITALS: BP 143/90; PULSE 80; RESP 17; TEMP 37.1; O2SAT 97
--- NOTE | 2020-02-28 21:49 | PC.NURSE ---
Trazodone and Vistaril given with 21oo meds for sleep and anxiety.
[2020-02-29 06:00] VITALS: BP 147/87; PULSE 62; RESP 15; TEMP 36.8; O2SAT 95
[2020-02-29] MEDS: citalopram 20 mg Tablet PO (09:35)
--- NOTE | 2020-02-29 12:23 | PM.NPN ---
Subjective NPU Subjective: Interval history: Patient again claiming that she did not sleep at all last night though nursing monitoring notes indicate that she slept throughout the night. She does not report feeling somewhat tired today. She states that her anxiety is less. She says that she no longer believes that she has a camera in her chest but she does not know where it went. She knows that she does not have a camera in her chest because her heart is not beating as hard as it used to. She is most worried about her daughter because she is now convinced that [facility] has taken her daughter away from her because she was put here in the hospital. Contact with her mother reveals that in fact mother continues to take care of the granddaughter and she has not been removed from patient custody. Mental Status Exam MSE Comments: Mental Status Exam: Patient is alert interpersonally engaged woman appearing approximately her stated age. Eye contact is good. She is believed to be a reliable informant to the best of her ability is information provided this internally consistent and generally consistent with that in the chart. Appearance: hygiene is fair; no gross neurological deficits., gait is unremarkable; AIMS=0 Speech: Speech is of normal rate and rhythm and easily understood. Thought processes: Thought processes are abstract though somewhat idiosyncratic. Judgment is not adequate for safety. Associations: intact Psychotic processes: There is no indication of guarding or paranoia. There is no attention to the internal stimuli. Auditory are reported as above. Visual hallucinations are denied. Judgment: Insight is poor. Problem solving skills are adequate for safety. Orientation: The patient is oriented to person, place time and situation. Memory: no deficits noted in immediate, intermediate, or remote spheres. Attention: The patient is alert and interpersonally engaged. Language: Verbalizations are coherent. Fund of knowledge: Fund of knowledge is adequate. Affect/Mood: Affect is sad with a depressed mood. Denies suicidal ideation Affective range flat Psychosis: Reality testing is improved. Vitals/I&O/Wt Last Vital Signs Temp 98.3 F 02/29/20 06:00 Pulse 62 02/29/20 06:00 Resp 15 02/29/20 06:00 BP 147/87 02/29/20 06:00 Pulse Ox 95 02/29/20 06:00 Data NPU : 02/26/20 20:17 02/26/20 20:17 A&P Additional A&P Information Diagnoses: Major depression?single episode, with psychotic features Posttraumatic stress disorder?chronic Assessment: Chuck Jordan is a 39-year-old woman who is laboring under significant psychosocial stressor and meets criteria for clinical depression. She is psychotic in that she believes something that is bizarre and untrue. She has risk factors for posttraumatic stress disorder and it appears that these problems of flashbacks and hypervigilance are of longstanding. However at this time, she is clinically depressed and would benefit for treatment for the combination of depression and psychosis. At this time it is believed that the depression is the predominant diagnosis and that likely the psychosis will improve as the depression resolves. Treatment plan: Due to the psychiatric conditions and treatment listed in the Assessment and Plan - the patient requires continued hospitalization. Will provide a safe and therapeutic environment for patient.. Will continue inpatient treatment to allow for medication adjustment and monitoring. Will continue q15 min safety checks. Patient will be admitted to the adult psychiatric unit and entered into the full array of individual and group therapies as part of that unit protocol. They will be provided 24-hour access to trained psychiatric nursing care and monitoring. Potential benefits and side effects of medications were discussed as well as the time course of expected response to medication changes. Chuck Jordan is a 39-year-old woman who is laboring under significant psychosocial stressor and meets criteria for clinical depression. She is psychotic in that she believes something that is bizarre and untrue. She has risk factors for posttraumatic stress disorder and it appears that these problems of flashbacks and hypervigilance are of longstanding. However at this time, she is clinically depressed and would benefit for treatment for the combination of depression and psychosis. At this time it is believed that the depression is the predominant diagnosis and that likely the psychosis will improve as the depression resolves. Plan: Initiate Celexa 20 mg daily. Potential benefits and side effects of these medications were discussed in detail along with expected course of response. We will also initiate Abilify 5 mg at bedtime along with prazosin 1 mg at bedtime targeting respectively psychosis and PTSD. Hospital day #3: Patient claims that she did not sleep at all last night. Nursing notes and monitoring indicates that she slept throughout the night. Patient received her Abilify and prazosin first doses last night at 9:00. She also received as needed trazodone and Vistaril at the same time. Unclear why. Plan: Day #2 of citalopram, prazosin, and Abilify. Hospital day #4: Patient may be somewhat fatigued after 2 doses of Abilify plus prazosin. This is day #3 on those medications. Her reality testing is improved. She is otherwise tolerating medications well. Plan: Decrease Abilify to 2.5 mg at bedtime and continue citalopram and terazosin unchanged. Monitor patient's mood, sleep, appetite, and behavior closely. Encourage patient to participate in individual and group therapeutic sessions on the kay. Estimated length of stay 5 days The expected benefits and potential side effects of patient's psychiatric medications were discussed with the patient. The patient understands and consents to treatment.CRITERIA FOR DISCHARGE: stable on medications and no longer an imminent risk Involuntary Hold Information 96 Hour Hold: 96 Hour Involuntary Admission: Yes 96 Hour Hold Ending Date: 03/01/20 96 Hour Hold Ending Time: 21:33 Attestations NPU Medical Necessity Statement*: Patient will remain in the hospital another 1-2 nights for stabilization of medication and resolution of psychosis. 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
[2020-02-29 14:00] VITALS: BP 127/83; PULSE 73; RESP 18; TEMP 37.1; O2SAT 97
[2020-02-29 20:55] VITALS: BP 138/89; PULSE 77; RESP 15; TEMP 37; O2SAT 96
[2020-02-29] MEDS: acetaminophen 325 mg Tablet 650 MG PO (22:02)
[2020-02-29] MEDS: ARIPiprazole 2 mg Tablet PO (22:03)
[2020-02-29] MEDS: prazosin 1 mg Capsule PO (22:04)
[2020-02-29] MEDS: hyDROXYzine 25 mg Capsule 50 MG PO (22:04)
[2020-03-01 06:00] VITALS: BP 131/81; PULSE 72; RESP 16; TEMP 36.9; O2SAT 97
[2020-03-01] MEDS: citalopram 20 mg Tablet PO (10:03)
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
[2020-03-01 14:00] VITALS: BP 136/85; PULSE 74; RESP 18; TEMP 37; O2SAT 96
[2020-03-01 14:48] VITALS: BP 136/85; PULSE 74; RESP 18; TEMP 37; O2SAT 96
== END 2020-03-01 15:32 | disposition home or self-care (01) | DRG 885 ==
LOC: ER 19:57 → NP 21:24
PROVIDERS: Admitting Provider Psychiatry & Neurology Psychiatry; Emergency Provider Physician Assistant; Visit Provider Psychiatry & Neurology Psychiatry
DX: F32.3 Major depressive disorder, single episode, severe with psychotic features (principal); F43.12 Post-traumatic stress disorder, chronic; Z62.810 Personal history of physical and sexual abuse in childhood; Z87.891 Personal history of nicotine dependence
CPT/HCPCS: 12345; 36415; 80053; 80306; 80307; 81001; 81003; 85025; 93005; 99284

== ENCOUNTER 2020-03-03 19:57 | Emergency (ER) | payer SELFPAY ==
[2020-03-03] VITALS (7 sets, daily range): BP systolic 119–150; BP diastolic 76–97; PULSE 76–89; RESP 14–16; TEMP 36.6; O2SAT 96–99; BMI 29.2
[2020-03-03 20:33] LABS: Basophils # 0.1 10^3/uL (0.0-0.1); Basophils % 0.6 %; Eosinophils # 0.1 10^3/uL (0.0-0.8); Eosinophils % 1.3 %; Hematocrit 42.8 % (37.0-47.0); Hemoglobin 14.6 g/dL (11.5-15.3); Lymphocytes # 2.1 10^3/uL (0.8-4.8); Lymphocytes % 24.8 %; Mean Corpuscular HGB Conc 34.1 g/dL (30.0-36.0); Mean Corpuscular Hemoglobin 30.7 pg (28.0-34.0); Mean Corpuscular Volume 89.9 fL (81-99); Mean Platelet Volume 9.8 fL (7.4-10.4); Monocytes # 0.7 10^3/uL (0.2-0.9); Monocytes % 7.9 %; Neutrophils # 5.45 10^3/uL (1.8-7.7); Neutrophils % 65.2 %; Nucleated Red Blood Cells % 0 %; Platelet Count 311 10^3/cmm (130-400); Red Blood Count 4.76 10^6/uL (4.1-5.3); Red Cell Distribution Width 11.9 % (12.1-15.1); White Blood Count 8.4 10^3/uL (4.0-10.0)
--- NOTE | 2020-03-03 20:47 | W.ED.ABDPA2 ---
HPI - Abdominal Pain General: Chief Complaint: Abdominal Pain Stated Complaint: abd pain Time Seen by Provider: 03/03/20 20:37 History of Present Illness: HPI narrative: Patient says he started with abdominal pain earlier today and has continued. She has been able to eat and drink. Says she has some pain with urination frequency. MD elicited complaint: abdominal pain Onset (ago): hour(s) Pain Consistency: constant Location: LLQ Severity: mild Quality: cramping and aching Exacerbating factors: nothing Relieving factors: nothing Associated Symptoms: Reports dysuria; Denies chills, fever(s), nausea and vomiting Related Data: Date of Last Menstrual Period: 02/22/20 Review of Systems Const: Denies: fever(s), chills or body aches Eyes: Denies: change in vision or blurry vision ENMT: Denies: throat pain or nasal congestion Card: Denies: chest pain or dyspnea on exertion Resp: Denies: dyspnea, productive cough or non-productive cough GI: Reports: abdominal pain; Denies: nausea or vomiting : Reports: dysuria Musc: Denies: extremity pain Skin/Breast: Denies: rash Neuro: Denies: headache(s) Psych: Denies: anxiety or depression Dilan/Lymph: Denies: easy bruising PFSH ED PFSH: Social History Smoking and tobacco status: former smoker Current gender identity: Female Female Reproductive History: Date of last menstrual period: 02/22/20 Physical Exam Const: COMMON NORMALS: no acute distress, average body habitus and patient oriented x3 HENMT: COMMON NORMALS: normocephalic HEAD & SCALP: normal to inspection and normocephalic FACE & SINUS: normal facial exam Eye: COMMON NORMALS: conjunctivae normal GENERAL EYE: appearance normal, both eyes and all related structures CONJUNCTIVA: Yes conjunctivae normal Neck/C-Spine: COMMON NORMALS: no JVD Chest: COMMONS NORMALS: normal inspection of the chest Resp: COMMON NORMALS: normal respiratory effort and clear to auscultation bilaterally AUSCULTATION: clear to auscultation bilaterally Cardio: COMMON NORMALS: no JVD, regular rate and regular rhythm RATE: regular rate RHYTHM: regular rhythm GI: COMMON NORMALS: Normal to inspection, nondistended, normoactive bowel sounds present PALPATION: Yes Tenderness to palpation present (GI) Details: LLQ Extremity: COMMON NORMALS: normal to inspection and full ROM Neuro: COMMON NORMALS: patient oriented x3 Course Vital Signs: Vital signs: Vital Signs Temperature 97.8 F 03/03/20 20:13 Pulse Rate 89 03/03/20 20:46 Respiratory Rate 15 03/03/20 20:46 Blood Pressure 132/87 03/03/20 20:46 Pulse Oximetry 98 03/03/20 20:46 MDM - Abdominal Pain Lab Data: Labs: Lab Results 03/03/20 Range/Units 20:18 WBC 8.4 (4.0-10.0) 10^3/ uL RBC 4.76 (4.1-5.3) 10^6/u L Hgb 14.6 (11.5-15.3) g/dL Hct 42.8 (37.0-47.0) % MCV 89.9 (81-99) fL MCH 30.7 (28.0-34.0) pg MCHC 34.1 (30.0-36.0) g/dL RDW 11.9 L (12.1-15.1) % Plt Count 311 (130-400) 10^3/c mm MPV 9.8 (7.4-10.4) fL Neut % (Auto) 65.2 % Lymph % (Auto) 24.8 % [place] % (Auto) 7.9 % Eos % (Auto) 1.3 % Baso % (Auto) 0.6 % Neut # (Auto) 5.45 (1.8-7.7) 10^3/u L Lymph # (Auto) 2.1 (0.8-4.8) 10^3/u L [place] # (Auto) 0.7 (0.2-0.9) 10^3/u L Eos # (Auto) 0.1 (0.0-0.8) 10^3/u L Baso # (Auto) 0.1 (0.0-0.1) 10^3/u L Nucleated RBC % (a uto) 0 % Nucleated RBCs # 0.0 /100WBC Discharge Plan Discharge Condition: Good Prescriptions: No Action prazosin 1 mg Capsule 1 mg PO BEDTIME Qty: 30 RF: 4 citalopram 20 mg Tablet 20 mg PO DAILY Qty: 30 RF: 4 aripiprazole 2 mg Tablet 2 mg PO BEDTIME Qty: 30 RF: 4 hydroxyzine HCl 50 mg tablet 25 mg PO BID PRN (Reason: for anxiety) Qty: 60 RF: 1 Coding Level of Care Code ED Steward/Stewardess Third for Elig Debbi
[2020-03-03 20:49] LABS: Alanine Aminotransferase 29 U/L (0-33); Albumin Level 5.1 g/dL (3.5-5.2); Alkaline Phosphatase 43 IU/L (35-105); Anion Gap 16.3 (5-19); Aspartate Amino Transferase 13 U/L (0-32); Blood Urea Nitrogen 17 mg/dL (6-20); Calcium 9.9 mg/dL (8.5-10.5); Carbon Dioxide 24 mmol/L (22-29); Chloride 101 mmol/L (98-107); Globulin 3.3 g/dL (1.3-4.6); Glomerular Filtration Rate 177.7 mL/min (90-130); Glucose 98 mg/dL (65-115); Lipase 21 U/L (13-60); Osmolality Calculated 282 mOsm/kg (285-295); Potassium 3.3 mmol/L (3.5-5.1); Sodium 138 mmol/L (136-145); Total Bilirubin 0.9 mg/dL (0.15-1.2); Total Protein 8.4 g/dL (6.6-8.7)
[2020-03-03] MEDS: ondansetron 4 MG Tablet 8 MG PO (21:19)
[2020-03-03] MEDS: potassium chloride ER 10 mEq Tablet 20 MEQ PO (21:19)
[2020-03-03 21:23] LABS: Urine Appearance Clear (CLEAR); Urine Color Yellow (Yellow); pH Urine 5 (5-7)
[2020-03-03 21:24] LABS: Add Urine Microscopic? YES; Bilirubin Urine 1+ (NEGATIVE); Blood Urine Neg (Negative); Glucose Urine UA Norm (Normal); Ketones Urine 2+ (Negative); Leukocyte Esterase Urine Trace (Negative); Nitrate Urine Negative (Negative); Protein Urine 1+ (Negative); Specific Gravity, Urine 1.025 (1.005-1.030); Urobilinogen Urine Norm (Negative)
[2020-03-03 21:26] LABS: HCG Qualitative Urine. Negative (Negative)
[2020-03-03 21:59] LABS: Add Urine Culture? No; Amorphous Sediment Urine 1+; Bacteria Urine 1+; Mucus Urine 4+; RBC Urine 0-4 /hpf (0-2); Squamous Epithelial Cell Urine 25-40 (0-5); WBC Urine 0-4 /hpf (0-5)
--- NOTE | 2020-03-03 22:08 | CTR_ITS ---
PROCEDURE INFORMATION: Exam: CT Abdomen And Pelvis With Contrast Exam date and time: 03/03/2020 10:27 PM Age: 39 years old Clinical indication: Abdominal pain; Generalized; Patient HX: C/O abd pain - diarrhea - pain w urination TECHNIQUE: Imaging protocol: Computed tomography of the abdomen and pelvis with intravenous contrast. Radiation optimization: All CT scans at this facility use at least one of these dose optimization techniques: automated exposure control; mA and/or kV adjustment per patient size (includes targeted exams where dose is matched to clinical indication); or iterative reconstruction. Contrast material: OMNI 300; Contrast volume: 95 ml; Contrast route: INTRAVENOUS (IV); COMPARISON: No relevant prior studies available. RADIATION DOSE METRICS: Total DLP (mGy-cm): 483.64 FINDINGS: Lungs: A calcified granuloma seen in the right lung base anteriorly. Liver: Normal. No mass. Gallbladder and bile ducts: Normal. No calcified stones. No ductal dilation. Pancreas: Normal. No ductal dilation. Spleen: Punctate calcifications are seen within the spleen compatible with calcified splenic granulomas. New there are 2 hyperdense intraluminal structure seen in the ileocecal valve and cecum likely representing ingested tablets. Adrenals: Normal. No mass. Kidneys and ureters: Normal. No hydronephrosis. Stomach and bowel: Liquid stool is present within the colon. New there is a heterogeneous myometrium seen within the uterus compatible with uterine fibroids. The largest rounded mass measures 3.1 cm within the lower uterine segment. Appendix: No evidence of appendicitis. Intraperitoneal space: Unremarkable. No free air. No significant fluid collection. Vasculature: Unremarkable. No abdominal aortic aneurysm. Lymph nodes: Unremarkable. No enlarged lymph nodes. Bladder: Unremarkable as visualized. Reproductive: See Stomach and bowel finding. Bones/joints: Unremarkable. No acute fracture. Soft tissues: Unremarkable. CT/CT abdomen pelvis w con* [id number] IMPRESSION: 1. Liquid stool is present within the colon. There are 2 tablets present, 1 at the ileocecal valve and 1 within the cecum. 2. Heterogeneous myometrium with several discrete masses present, the largest measuring 3.1 cm in the lower uterine segment. These likely represent benign uterine fibroids. 3. Calcified splenic granulomas 4. Calcified pulmonary granuloma seen in the right lung base anteriorly Radiation Dose CTDIVOL = (mGy): DLP = 483.64 (mGy-cm)
[2020-03-03] MEDS: iohexol 300 mg/mL 100 mL Btl IV (22:40)
== END 2020-03-03 23:47 | disposition home or self-care (01) ==
PROVIDERS: Emergency Medicine; Emergency Provider Nurse Practitioner Family
DX: Z87.891 Personal history of nicotine dependence (principal)
CPT/HCPCS: 12345; 74177; 80053; 81001; 81025; 83690; 85025; 99283; Q0162; Q9967

== ENCOUNTER 2020-03-21 14:51 | Inpatient (IN) | payer SELFPAY ==
[2020-03-21] VITALS (7 sets, daily range): BP systolic 138; BP diastolic 88–97; PULSE 85–86; RESP 14–21; TEMP 36.6–37.1; O2SAT 96–98; BMI 28.3
--- NOTE | 2020-03-21 15:19 | ECG_ITS ---
[facility] Test Date: 2020-03-21 Pat Name: Chuck Jordan Department: Room: Gender: Female Fuel Attendant: : 1980 Requested By: Crystal Bradshaw Order Number: [id number] Lena MD: Lula Baker M.D. Measurements Intervals [place] Rate: 75 P: 27 [place]: 147 QRS: 40 QRSD: 89 T: 31 QT: 362 QTc: 407 Interpretive Statements SINUS RHYTHM Compared to ECG 02/26/2020 21:39:56 T-wave abnormality no longer present Electronically Signed On 03-22-2020 11:35:10 CDT by Lula Baker M.D. [id number]
--- NOTE | 2020-03-21 15:53 | W.ED.PSYCH ---
HPI - Psych General: Chief Complaint: Psychiatric Symptoms Stated Complaint: MHE Time Seen by Provider: 03/21/20 15:14 Source: patient Mode of arrival: ambulatory Limitations: no limitations History of Present Illness: HPI Narrative: Chuck is a 39-year-old female who comes in complaining of multiple things. States that she has had a headache for several weeks and this appears to be the issue that she is primarily concerned about. Denies any fever, sudden onset headaches or nausea or vomiting. Patient states she just like to have her headaches checked out. Patient's mother is pulled me aside and states that she has a letter from her daughter stating that she wants to kill herself. She states her daughter has been acting strangely. She says she is noncompliant with medications and her psychologist has stated that she needs to go to the neuropsychiatric unit to be stabilized with the patient has been defiant up to this point. Review of Systems Const: Denies: fever(s), chills, body aches, fatigue, malaise or diaphoresis Eyes: Denies: change in vision, blurry vision, photophobia, eye discomfort, eye discharge or eye redness ENMT: Denies: throat pain, odynophagia, hoarseness, swelling of lips/tongue, ear or mastoid pain, ear discharge, change in hearing or nasal discharge Card: Denies: chest pain, palpitations, irregular heart rhythm, edema, lightheadedness, syncope, pre-syncope, dyspnea on exertion or orthopnea Resp: Denies: dyspnea, productive cough, non-productive cough, wheezing, hemoptysis or chest congestion GI: Denies: abdominal pain, nausea, vomiting, hematemesis, coffee ground emesis, heartburn, diarrhea, constipation, GI cramping, hematochezia or melena : Denies: flank pain, dysuria, urinary frequency, urinary urgency or hematuria Musc: Denies: neck pain, back pain, extremity pain, extremity swelling, joint pain, joint swelling, joint redness, joint warmth or joint stiffness Skin/Breast: Denies: rash, pruritus, erythema or skin tenderness Neuro: Denies: headache(s), numbness in extremities, weakness in extremities, sensory changes, lack of coordination, difficulty walking, dizziness, vertigo, confusion, Slurred speech present or seizure-like activity Dilan/Lymph: Denies: easy bruising, easy bleeding, petechiae, purpura or enlarged lymph nodes All/Imm: Denies: urticaria, throat swelling, tongue swelling, facial swelling or acute wheezing PFSH ED PFSH: Social History Smoking and tobacco status: former smoker Current gender identity: Female Female Reproductive History: Date of last menstrual period: 02/22/20 Physical Exam Const: COMMON NORMALS: no acute distress, patient oriented x3, no limitations, healthy appearing and well nourished GENERAL APPEARANCE: cooperative, well kempt and well developed HENMT: COMMON NORMALS: normocephalic, atraumatic, external ears normal, EAC's normal and Normal external nose present HEAD & SCALP: normal to inspection, normocephalic and atraumatic FACE & SINUS: normal facial exam and face symmetric NOSE: Normal external nose present and Normal nares present EXTERNAL EAR: Yes external ears normal EXTERNAL AUDITORY CANAL: EAC's normal MOUTH: Normal oral and palatal mucosa present, lip normal and tongue normal Eye: COMMON NORMALS: Equal, round and reactive pupils present and conjunctivae normal GENERAL EYE: appearance normal, both eyes and all related structures ALIGNMENT: Yes alignment normal PERIORBITAL: periorbital findings normal EYELID: eyelids normal CONJUNCTIVA: Yes conjunctivae normal SCLERA: sclerae normal PUPIL: Yes Equal, round and reactive pupils present Neck/C-Spine: COMMON NORMALS: full ROM, no lymphadenopathy, supple, no meningeal signs and no JVD GENERAL: Yes normal visual inspection and Yes trachea midline Chest: COMMONS NORMALS: normal inspection of the chest and normal palpation of entire chest wall Resp: COMMON NORMALS: normal respiratory effort, No retractions, No use of accessory muscles and clear to auscultation bilaterally EFFORT & INSPECTION: Yes able to speak in complete sentences and Yes symmetric chest movement AUSCULTATION: clear to auscultation bilaterally, no crackles, no rales, no rhonchi and no wheezes Cardio: COMMON NORMALS: no JVD, regular rate, regular rhythm, S1 normal heart sound present and S2 normal heart sound present RATE: regular rate RHYTHM: regular rhythm HEART SOUNDS: S1 normal heart sound present, S2 normal heart sound present, no click, no gallops, no murmurs, no rubs and abnormal split S2 GI: COMMON NORMALS: Soft to palpation and No hepatosplenomegaly present PALPATION: Yes Soft to palpation, No Tenderness to palpation present (GI), No Guarding due to palpation present (GI), No Rigid due to palpation, Yes No hepatosplenomegaly present, No Hernia present, No Palpable mass present and No Pulsatile mass present : COMMON NORMALS: Yes no CVA tenderness BLADDER/KIDNEY EXAM: Yes no CVA tenderness EXTERNAL FEMALE EXAM: No Hernia present Back/Pelvis: COMMON NORMALS: no CVA tenderness, thoracic and lumbar spine normal to inspection, no thoracic nor lumbar tenderness and thoraco-lumbar ROM normal Extremity: COMMON NORMALS: normal to inspection, full ROM, capillary refill normal, no joint enlargement, no clubbing, cyanosis or edema and no calf tenderness Neuro: COMMON NORMALS: patient oriented x3, CN's II-XII intact bilaterally, moves all extremities, no focal motor deficits and no sensory deficits noted MENINGEAL SIGNS: Yes no meningeal signs SPEECH: speech normal Psych: COMMON NORMALS: mental status grossly normal, Normal thought process present, cooperative, normal affect, speech normal and activity/motor behavior normal APPEARANCE: Yes well kempt SPEECH: Yes normal speech THOUGHT PROCESS: Normal thought process present Skin: COMMON NORMALS: no rashes or lesions noted, turgor normal, no jaundice, no petechiae and no mottling GENERAL SKIN EXAM: no rashes or lesions noted and turgor normal MDM - Psych MDM Narrative: Medical decision making narrative: [employer] documentation from earlier today along with what family has reported makes us concerned the patient is acutely psychotic and suicidal. Patient will be admitted under 96-hour hold to the neuropsychiatric unit. The case was reviewed with Dr. Castillo and he is in agreement Lab Data: Attestation: I reviewed the patient's lab results. Labs: Lab Results 03/21/20 03/21/20 03/21/20 Range/Units 16:07 16:07 16:07 WBC 4.9 (4.0-10.0) 10^3/ uL RBC 4.25 (4.1-5.3) 10^6/u L Hgb 13.0 (11.5-15.3) g/dL Hct 39.0 (37.0-47.0) % MCV 91.8 (81-99) fL MCH 30.6 (28.0-34.0) pg MCHC 33.3 (30.0-36.0) g/dL RDW 12.2 (12.1-15.1) % Plt Count 225 (130-400) 10^3/c mm MPV 10.2 (7.4-10.4) fL Neut % (Auto) 61.3 % Lymph % (Auto) 28.6 % Mobile % (Auto) 7.7 % Eos % (Auto) 1.6 % Baso % (Auto) 0.6 % Neut # (Auto) 3.02 (1.8-7.7) 10^3/u L Lymph # (Auto) 1.4 (0.8-4.8) 10^3/u L Mobile # (Auto) 0.4 (0.2-0.9) 10^3/u L Eos # (Auto) 0.1 (0.0-0.8) 10^3/u L Baso # (Auto) 0.0 (0.0-0.1) 10^3/u L Nucleated RBC % (a uto) 0 % Nucleated RBCs # 0.0 /100WBC PT 14.70 (12.1-14.9) SECO NDS INR 1.11 (0.8-1.2) Sodium 138 (136-145) mmol/L Potassium 3.4 L (3.5-5.1) mmol/L Chloride 104 (98-107) mmol/L Carbon Dioxide 26 (22-29) mmol/L Anion Gap 11.4 (5-19) BUN 15 (6-20) mg/dL Creatinine 0.6 (0.5-0.9) mg/dL GFR Calculation 111.3 (90-130) mL/min Glucose 84 (65-115) mg/dL Calculated Osmolal ity 281 L (285-295) mOsm/k g Calcium 9.6 (8.5-10.5) mg/dL Total Bilirubin 0.7 (0.15-1.2) mg/dL AST 14 (0-32) U/L ALT 23 (0-33) U/L Alkaline Phosphata se 40 (35-105) IU/L Total Protein 7.0 (6.6-8.7) g/dL Albumin 4.5 (3.5-5.2) g/dL Globulin 2.5 (1.3-4.6) g/dL TSH 1.65 (0.27-4.20) uIU/ mL HCG, Qual (Negative) Urine Color (Yellow) Urine Appearance (CLEAR) Urine pH (5-7) Ur Specific Gravit y (1.005-1.030) Urine Protein (Negative) Urine Glucose (UA) (Normal) Urine Ketones (Negative) Urine Blood (Negative) Urine Nitrate (Negative) Urine Bilirubin (NEGATIVE) Urine Urobilinogen (Negative) mg/dL Ur Leukocyte Saba ase (Negative) Urine RBC (0-2) /hpf Urine WBC (0-5) /hpf Ur Squamous Epith Cells (0-5) Amorphous Sediment Urine Bacteria (NONE) Urine Mucus Salicylates < 0.3 L (3-10) mg/dL Urine Opiates Scre en (Negative) ng/mL Acetaminophen < 5.0 L (10-30) ug/mL Ur Barbiturates Sc reen (Negative) ng/mL Phenytoin (10-20) ug/mL Valproic Acid 2.8 L (50-100) ug/mL Carbamazepine (4.0-12.0) ug/mL Ur Phencyclidine S crn (Negative) ng/mL Ur Amphetamines Sc reen (Negative) ng/mL U Benzodiazepines Scrn (Negative) ng/mL Fairgarden (0.6-1.2) mmol/L Urine Cocaine Scre en (Negative) ng/mL U Marijuana (THC) Screen (Negative) ng/mL Ethyl Alcohol < 10 (0-10) mg/dL 03/21/20 03/21/20 03/21/20 Range/Units 16:07 16:07 16:15 WBC (4.0-10.0) 10^3/ uL RBC (4.1-5.3) 10^6/u L Hgb (11.5-15.3) g/dL Hct (37.0-47.0) % MCV (81-99) fL MCH (28.0-34.0) pg MCHC (30.0-36.0) g/dL RDW (12.1-15.1) % Plt Count (130-400) 10^3/c mm MPV (7.4-10.4) fL Neut % (Auto) % Lymph % (Auto) % Mobile % (Auto) % Eos % (Auto) % Baso % (Auto) % Neut # (Auto) (1.8-7.7) 10^3/u L Lymph # (Auto) (0.8-4.8) 10^3/u L Mobile # (Auto) (0.2-0.9) 10^3/u L Eos # (Auto) (0.0-0.8) 10^3/u L Baso # (Auto) (0.0-0.1) 10^3/u L Nucleated RBC % (a uto) % Nucleated RBCs # /100WBC PT (12.1-14.9) SECO NDS INR (0.8-1.2) Sodium (136-145) mmol/L Potassium (3.5-5.1) mmol/L Chloride (98-107) mmol/L Carbon Dioxide (22-29) mmol/L Anion Gap (5-19) BUN (6-20) mg/dL Creatinine (0.5-0.9) mg/dL GFR Calculation (90-130) mL/min Glucose (65-115) mg/dL Calculated Osmolal ity (285-295) mOsm/k g Calcium (8.5-10.5) mg/dL Total Bilirubin (0.15-1.2) mg/dL AST (0-32) U/L ALT (0-33) U/L Alkaline Phosphata se (35-105) IU/L Total Protein (6.6-8.7) g/dL Albumin (3.5-5.2) g/dL Globulin (1.3-4.6) g/dL TSH (0.27-4.20) uIU/ mL HCG, Qual Negative (Negative) Urine Color Straw (Yellow) Urine Appearance Clear (CLEAR) Urine pH 5.0 (5-7) Ur Specific Gravit y 1.020 (1.005-1.030) Urine Protein Neg (Negative) Urine Glucose (UA) Norm (Normal) Urine Ketones Negative (Negative) Urine Blood 3+ H (Negative) Urine Nitrate Negative (Negative) Urine Bilirubin Neg (NEGATIVE) Urine Urobilinogen Norm (Negative) mg/dL Ur Leukocyte Saba ase Negative (Negative) Urine RBC 10-15 H (0-2) /hpf Urine WBC None (0-5) /hpf Ur Squamous Epith Cells 5-10 H (0-5) Amorphous Sediment Not Reportable Urine Bacteria Trace (NONE) Urine Mucus 3+ Salicylates (3-10) mg/dL Urine Opiates Scre en (Negative) ng/mL Acetaminophen (10-30) ug/mL Ur Barbiturates Sc reen (Negative) ng/mL Phenytoin 0.8 L (10-20) ug/mL Valproic Acid (50-100) ug/mL Carbamazepine 2.0 L (4.0-12.0) ug/mL Ur Phencyclidine S crn (Negative) ng/mL Ur Amphetamines Sc reen (Negative) ng/mL U Benzodiazepines Scrn (Negative) ng/mL Fairgarden 0.1 L (0.6-1.2) mmol/L Urine Cocaine Scre en (Negative) ng/mL U Marijuana (THC) Screen (Negative) ng/mL Ethyl Alcohol (0-10) mg/dL 03/21/20 Range/Units 16:15 WBC (4.0-10.0) 10^3/ uL RBC (4.1-5.3) 10^6/u L Hgb (11.5-15.3) g/dL Hct (37.0-47.0) % MCV (81-99) fL MCH (28.0-34.0) pg MCHC (30.0-36.0) g/dL RDW (12.1-15.1) % Plt Count (130-400) 10^3/c mm MPV (7.4-10.4) fL Neut % (Auto) % Lymph % (Auto) % Mobile % (Auto) % Eos % (Auto) % Baso % (Auto) % Neut # (Auto) (1.8-7.7) 10^3/u L Lymph # (Auto) (0.8-4.8) 10^3/u L Mobile # (Auto) (0.2-0.9) 10^3/u L Eos # (Auto) (0.0-0.8) 10^3/u L Baso # (Auto) (0.0-0.1) 10^3/u L Nucleated RBC % (a uto) % Nucleated RBCs # /100WBC PT (12.1-14.9) SECO NDS INR (0.8-1.2) Sodium (136-145) mmol/L Potassium (3.5-5.1) mmol/L Chloride (98-107) mmol/L Carbon Dioxide (22-29) mmol/L Anion Gap (5-19) BUN (6-20) mg/dL Creatinine (0.5-0.9) mg/dL GFR Calculation (90-130) mL/min Glucose (65-115) mg/dL Calculated Osmolal ity (285-295) mOsm/k g Calcium (8.5-10.5) mg/dL Total Bilirubin (0.15-1.2) mg/dL AST (0-32) U/L ALT (0-33) U/L Alkaline Phosphata se (35-105) IU/L Total Protein (6.6-8.7) g/dL Albumin (3.5-5.2) g/dL Globulin (1.3-4.6) g/dL TSH (0.27-4.20) uIU/ mL HCG, Qual (Negative) Urine Color (Yellow) Urine Appearance (CLEAR) Urine pH (5-7) Ur Specific Gravit y (1.005-1.030) Urine Protein (Negative) Urine Glucose (UA) (Normal) Urine Ketones (Negative) Urine Blood (Negative) Urine Nitrate (Negative) Urine Bilirubin (NEGATIVE) Urine Urobilinogen (Negative) mg/dL Ur Leukocyte Saba ase (Negative) Urine RBC (0-2) /hpf Urine WBC (0-5) /hpf Ur Squamous Epith Cells (0-5) Amorphous Sediment Urine Bacteria (NONE) Urine Mucus Salicylates (3-10) mg/dL Urine Opiates Scre en Negative (Negative) ng/mL Acetaminophen (10-30) ug/mL Ur Barbiturates Sc reen Negative (Negative) ng/mL Phenytoin (10-20) ug/mL Valproic Acid (50-100) ug/mL Carbamazepine (4.0-12.0) ug/mL Ur Phencyclidine S crn Negative (Negative) ng/mL Ur Amphetamines Sc reen Negative (Negative) ng/mL U Benzodiazepines Scrn Negative (Negative) ng/mL Fairgarden (0.6-1.2) mmol/L Urine Cocaine Scre en Negative (Negative) ng/mL U Marijuana (THC) Screen Negative (Negative) ng/mL Ethyl Alcohol (0-10) mg/dL EKG Data^: EKG 1: Attestation: I personally reviewed and interpreted this EKG as follows: EKG interpretation date: 03/21/20 EKG interpretation time: 16:05 Interpretation: NSR @ 75, NAD. Discharge Plan Discharge Patient Disposition: Admitted As Inpatient Admit Provider: Milton Castillo Clinical Impression: Suicidal ideation, Acute psychosis Condition: Stable Referrals: MACK MORA [facility], [Primary Care Provider] - Discharge Date/Time: 03/21/20 18:37 Coding Level of Care Code ED E [employer]chandising Coordinator for Chg Fwd Exam Comprehensive
[2020-03-21 16:25] LABS: Basophils % 0.6 %; Eosinophils # 0.1 10^3/uL (0.0-0.8); Eosinophils % 1.6 %; Lymphocytes # 1.4 10^3/uL (0.8-4.8); Lymphocytes % 28.6 %; Mean Corpuscular HGB Conc 33.3 g/dL (30.0-36.0); Mean Corpuscular Hemoglobin 30.6 pg (28.0-34.0); Mean Corpuscular Volume 91.8 fL (81-99); Mean Platelet Volume 10.2 fL (7.4-10.4); Monocytes # 0.4 10^3/uL (0.2-0.9); Monocytes % 7.7 %; Neutrophils # 3.02 10^3/uL (1.8-7.7); Neutrophils % 61.3 %; Nucleated Red Blood Cells % 0 %; Platelet Count 225 10^3/cmm (130-400); Red Blood Count 4.25 10^6/uL (4.1-5.3); Red Cell Distribution Width 12.2 % (12.1-15.1); White Blood Count 4.9 10^3/uL (4.0-10.0)
[2020-03-21 16:39] LABS: HCG, Serum Qual Negative (Negative)
[2020-03-21 16:47] LABS: Amphetamines Screen Urine Negative (Negative); Barbiturates Screen Urine Negative (Negative); Benzodiazepines Screen Urine Negative (Negative); Cocaine Screen Urine Negative (Negative); Opiate Screen Urine Negative (Negative); PCP Screen Urine Negative (Negative); THC Screen Urine Negative (Negative)
[2020-03-21 16:50] LABS: Add Urine Culture? No; Add Urine Microscopic? YES; Bacteria Urine TRACE; Bilirubin Urine Neg (NEGATIVE); Blood Urine 3+ (Negative); Glucose Urine UA Norm (Normal); Ketones Urine Negative (Negative); Leukocyte Esterase Urine Negative (Negative); Mucus Urine 3+; Nitrate Urine Negative (Negative); Protein Urine Neg (Negative); Urine Appearance Clear (CLEAR); Urine Color Straw (Yellow); Urobilinogen Urine Norm (Negative)
[2020-03-21 16:56] LABS: Lithium 0.1 mmol/L (0.6-1.2); Phenytoin Dilantin 0.8 ug/mL (10-20)
[2020-03-21 16:57] LABS: INR 1.11 (0.8-1.2)
[2020-03-21 16:58] LABS: Alanine Aminotransferase 23 U/L (0-33); Albumin Level 4.5 g/dL (3.5-5.2); Alkaline Phosphatase 40 IU/L (35-105); Anion Gap 11.4 (5-19); Aspartate Amino Transferase 14 U/L (0-32); Blood Urea Nitrogen 15 mg/dL (6-20); Calcium 9.6 mg/dL (8.5-10.5); Carbon Dioxide 26 mmol/L (22-29); Chloride 104 mmol/L (98-107); Globulin 2.5 g/dL (1.3-4.6); Glomerular Filtration Rate 111.3 mL/min (90-130); Glucose 84 mg/dL (65-115); Osmolality Calculated 281 mOsm/kg (285-295); Potassium 3.4 mmol/L (3.5-5.1); Sodium 138 mmol/L (136-145); Thyroid Stimulating Hormone 1.65 uIU/mL (0.27-4.20); Total Bilirubin 0.7 mg/dL (0.15-1.2); Valproic Acid Level 2.8 ug/mL (50-100)
[2020-03-21 17:00] LABS: Acetaminophen < 5.0 ug/mL (10-30); Alcohol Level < 10 mg/dL (0-10); Salicylate < 0.3 mg/dL (3-10)
[2020-03-21] MEDS: ibuprofen 200 mg Tablet 400 MG PO (18:26)
[2020-03-21] MEDS: acetaminophen 500 mg Tablet 1000 MG PO (18:26)
--- NOTE | 2020-03-21 22:30 | PC.NURSE ---
patient wants to wait to start meds until she speaks with the doctor. pt says her home medications just make her sleepall the time.
[2020-03-22 06:00] VITALS: BP 123/87; PULSE 76; RESP 17; TEMP 36.7; O2SAT 96
--- NOTE | 2020-03-22 10:20 | PC.NURSE ---
Patient is delusional this morning. She is not per testing in the ED. However, Patient approached the nursing unit wanting to get her clothing back so she can go to the OB Unit as she feels she is about to have a baby. She wants to talk to Social Workers to make this happen. She is visibly upset that she can not have her clothing or leave on her own. She was able to be redirected fairly easily.
[2020-03-22 14:00] VITALS: BP 120/77; PULSE 80; RESP 20; TEMP 36.5; O2SAT 97
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
[2020-03-22] MEDS: ARIPiprazole 10 mg Tablet PO (16:41)
[2020-03-22 20:22] VITALS: BP 101/66; PULSE 68; RESP 17; TEMP 37.1; O2SAT 98
[2020-03-23 06:00] VITALS: BP 116/70; PULSE 61; RESP 13; TEMP 36.6; O2SAT 98
[2020-03-23] MEDS: ARIPiprazole 10 mg Tablet PO (09:07)
[2020-03-23 13:35] VITALS: BP 109/66; PULSE 76; RESP 18; TEMP 36.7; O2SAT 97
[2020-03-23 21:32] VITALS: BP 127/85; PULSE 91; RESP 15; TEMP 36.7; O2SAT 96
[2020-03-24 06:00] VITALS: BP 129/81; PULSE 74; RESP 13; TEMP 36.4; O2SAT 98
[2020-03-24] MEDS: ARIPiprazole 10 mg Tablet PO (08:35)
[2020-03-24] MEDS: citalopram 20 mg Tablet 40 MG PO (13:12)
[2020-03-24 14:00] VITALS: BP 131/85; PULSE 87; RESP 16; TEMP 37.1; O2SAT 98
[2020-03-24 21:23] VITALS: BP 120/84; PULSE 84; RESP 20; TEMP 36.9; O2SAT 94
--- NOTE | 2020-03-24 22:16 | PC.NURSE ---
Pt requested sleeping and anxiety meds, Trazodone and Vistaril given.
[2020-03-25 06:00] VITALS: BP 127/82; PULSE 72; RESP 20; TEMP 36.9; O2SAT 97
[2020-03-25] MEDS: ARIPiprazole 10 mg Tablet PO (08:58)
[2020-03-25] MEDS: citalopram 20 mg Tablet 40 MG PO (08:59)
--- NOTE | 2020-03-25 11:06 | P.PN_ITS ---
Subjective NPU Subjective: Interval history: Patient is a somewhat guarded in her self- report. After considerable discussion, she admits that she has been under a lot of stress, she has had suicidal thoughts, and sometimes she has difficulty telling what is real and what is not. She refused to give an example. She says that she was not taking her medications at home because they were making her tired and drowsy during the day. This could have been from either the Abilify or the prazosin. She was agreeable to a change. Mental Status Exam MSE Comments: Mental Status Exam: Appearance: hygiene is fair; no gross neurological deficits., gait is unremarkable; AIMS=0 Speech: Speech is of normal rate and rhythm and easily understood. Thought processes: Thought processes are concrete. Judgment is adequate for safety. Associations: intact Psychotic processes: She is somewhat guarded and is reluctant to discuss her internal thoughts. However there is no indication of outright paranoia or fear. There is no attention to the internal stimuli. Auditory and visual hallucinations are denied. Judgment: Insight is fair. Problem solving skills are adequate for safety. Orientation: The patient is oriented to person, place time and situation. Memory: no deficits noted in immediate, intermediate, or remote spheres. Attention: The patient is alert and interpersonally engaged. Language: Verbalizations are coherent. Fund of knowledge: Fund of knowledge is adequate. Affect/Mood: Affect is consistent with a depressed mood. pt denies suicidal ideation Affective range is constricted. Psychosis: perception impaired by symptoms of depression and suspiciousness and cognitive distortion; reality testing challenged. Cognition: Patient Appearance: Appropriate Level of Consciousness: Awake, Alert, Appropriate and Follows Commands Patient Cognition Impaired: No Ability to Follow Directions: Excellent Patient Orientation (long list): Person, Place, Time and Name Comprehension Ability: No Impairment Hallucination Type: None Delusion Description: Grandiose Thought Process: Appropriate Affect: Affect Description: Calm and Flat Behavior: Patient Behavior: Cooperative Speech Pattern: Clear Vitals/I&O/Wt Last Vital Signs Temp 98.5 F 03/25/20 06:00 Pulse 72 03/25/20 06:00 Resp 20 H 03/25/20 06:00 BP 127/82 03/25/20 06:00 Pulse Ox 97 03/25/20 06:00 Weight last 48 hrs Weight 67.699 kg Data NPU : 03/21/20 16:07 03/21/20 16:07 A&P Additional A&P Information Due to the psychiatric conditions and treatment listed in the Assessment and Plan - the patient requires continued hospitalization. Will provide a safe and therapeutic environment for patient.. Will continue inpatient treatment to allow for medication adjustment and monitoring. Will continue q15 min safety checks. Hospital day #5: It is reasonable that compliance with medication is going to be impaired if she is suffering the stated side effects of fatigue and sleepiness. Unfortunately, even though there was an affidavit on her chart, it did not get progress into a 96-hour involuntary commitment. She does not present an imminent danger of risk to self or others at this time. However she is compliant with treatment and is agreeable to the plan below. We will change Celexa to 40 mg at bedtime. Abilify will be replaced with 5 mg at bedtime with the idea that if noncompliance continues to be a problem, Prolixin Decanoate can be an alternative. Monitor patient's mood, sleep, appetite, and behavior closely. Encourage patient to participate in individual and group therapeutic sessions on the kay. Estimated length of stay 5 days The expected benefits and potential side effects of patient's psychiatric medications were discussed with the patient. The patient understands and consents to treatment. CRITERIA FOR DISCHARGE: stable on medications and no longer an imminent threat to self or others Involuntary Hold Information 96 Hour Hold: 96 Hour Involuntary Admission: Yes 96 Hour Hold Ending Date: 03/01/20 96 Hour Hold Ending Time: 21:33 Attestations NPU Medical Necessity Statement*: Patient will remain in the hospital another 2-4 nights for assessment of medication efficacy and tolerability. Coding Level of Care Code Acute Well Surveying Engineer for [employer]
--- NOTE | 2020-03-25 11:54 | PC.SOCIAL ---
mom called. she expressed concerns about her daughter: 1)mom has history of brain tumor and dad has brain cancer currently. 2)mom said that patient has a in long-term. she had a miscarriage of a baby she had with this 14 years ago. patient started her symptoms around this anniversary time. she has not this YET. He is not getting out anytime soon. mom wonders if the stress of the memories about and this baby has triggered her. 3) according to her b.f. she has been showing symptoms longer, but mom said that her symptoms have been showing mostly in the month of January. 4) she might be having increase in symptoms related to patient's menstrual cycle. 5) she has a 12 year old. this is her last . 6) mom asked if she could get a brain scan.
[2020-03-25 14:00] VITALS: BP 130/84; PULSE 82; RESP 13; TEMP 37.2; O2SAT 95
[2020-03-25] MEDS: acetaminophen 325 mg Tablet 650 MG PO (20:47)
[2020-03-25 22:00] VITALS: BP 112/60; PULSE 71; RESP 17; TEMP 36.9; O2SAT 96
--- NOTE | 2020-03-25 22:24 | NUR.SHIFT ---
Jennifer has been in bed since the beginning of shift. She complains of a headache that she has had all day. When asked about SI/HI she denies all. She is not talkative but easily engaged.
[2020-03-26 06:00] VITALS: BP 113/73; PULSE 55; RESP 16; TEMP 36.6; O2SAT 96
--- NOTE | 2020-03-26 10:59 | CTR_ITS ---
PROCEDURE INFORMATION: Exam: CT Head Without And With Contrast Exam date and time: 03/26/2020 2:04 PM Age: 39 years old Clinical indication: Other: New onset psychosis; Additional info: New onset psychosis. R/u structural brain etiology TECHNIQUE: Imaging protocol: Computed tomography of the head without and with intravenous contrast. Radiation optimization: All CT scans at this facility use at least one of these dose optimization techniques: automated exposure control; mA and/or kV adjustment per patient size (includes targeted exams where dose is matched to clinical indication); or iterative reconstruction. Contrast material: OMNI 300; Contrast volume: 95 ml; Contrast route: INTRAVENOUS (IV) ADDITIONAL STUDY INFORMATION: Total DLP (mGy-cm): 1156.33 COMPARISON: No relevant prior studies available. FINDINGS: Evaluation of the brain demonstrates no areas of abnormal density. No pathologic enhancement demonstrated following contrast administration. Size of ventricular system appears within normal limits for the patient's stated age. No depressed calvarial fracture is demonstrated. Visualized paranasal sinuses and mastoid air cells demonstrate no significant opacification. CT/CT head wo/w con [id number] IMPRESSION: No acute intracranial process is demonstrated. Radiation Dose CTDIVOL = (mGy): DLP = 1156.33 (mGy-cm)
--- NOTE | 2020-03-26 11:17 | P.PN_ITS ---
Subjective NPU Subjective: Interval history: Patient reports toleration of medication changes and that she is having less fatigue today. We discussed the plan below and she was somewhat guarded in questioning but was eventually agreeable to the CT of the head. Mental Status Exam MSE Comments: This is an overweight, white female, with adequate dress, grooming, and eye contact. No abnormal movements. Cooperative with exam in no acute distress. Speech was decreased rate and volume. Mood described as depressed; affect congruent. Thought process, organized. Thought content: patient denied any suicidal or homicidal ideation, there were no delusions reported or noted. The patient denied having auditory hallucinations. She denied some paranoia. However it is unclear whether she is a reliable informant as she tends to be guarded. Attention, concentration, and memory appear intact but were not formally tested. She is alert and oriented times three. Insight and judgment are limited. Cognition: Patient Appearance: Appropriate Level of Consciousness: Awake, Alert, Appropriate and Follows Commands Patient Cognition Impaired: No Ability to Follow Directions: Excellent Patient Orientation (long list): Person, Place, Time and Name Comprehension Ability: No Impairment Hallucination Type: None Delusion Description: Not Present Thought Process: Appropriate Affect: Affect Description: Calm Behavior: Patient Behavior: Cooperative Speech Pattern: Clear Vitals/I&O/Wt Last Vital Signs Temp 97.8 F 03/26/20 06:00 Pulse 55 L 03/26/20 06:00 Resp 16 03/26/20 06:00 BP 113/73 03/26/20 06:00 Pulse Ox 96 03/26/20 06:00 Data NPU : 03/21/20 16:07 03/21/20 16:07 A&P Assessment and plan (1) Suicidal ideation: Status: Acute (2) Acute psychosis: Status: Acute (3) Major depression with psychotic features: Status: Acute Additional A&P Information This is a 39 year old, white female, with major depressive disorder, recurrent, severe, with psychotic features, who presents off of her medication, reporting feeling overwhelmed, having paranoia with some recent suicidal thinking. Hospital day #5: It is reasonable that compliance with medication is going to be impaired if she is suffering the stated side effects of fatigue and sleepiness. Unfortunately, even though there was an affidavit on her chart, it did not get progress into a 96-hour involuntary commitment. She does not present an imminent danger of risk to self or others at this time. However she is compliant with treatment and is agreeable to the plan below. We will change Celexa to 40 mg at bedtime. Abilify will be replaced with 5 mg at bedtime with the idea that if noncompliance continues to be a problem, Prolixin Decanoate can be an alternative. Hospital day #6: This is day #1 after initiating Prolixin 5 mg at bedtime. She appears to be tolerating this medication well. It was discovered that there is a family history of cancer in both parents and of a brain tumor and mother. Given the nature of the onset of this degree of psychosis and its refractory status with regard to treatment, a CT scan of the head will be ordered to rule out any mass or central etiology to the psychosis. Encourage individual, group, and milieu therapy. Continue q-15 minute checks for safety. Involuntary Hold Information 96 Hour Hold: 96 Hour Involuntary Admission: Yes 96 Hour Hold Ending Date: 03/01/20 96 Hour Hold Ending Time: 21:33 Attestations NPU Medical Necessity Statement*: Patient will remain in the hospital another 2-4 nights for assessment of medication efficacy and tolerability. Coding Level of Care Code Acute Research Hydraulic Engineer for [facility] Diagnoses Suicidal ideation R45.851 Acute psychosis F23 Major depression with psychotic features F32.3
[2020-03-26 14:00] VITALS: BP 122/83; PULSE 74; RESP 18; TEMP 36.7; O2SAT 97
[2020-03-26] MEDS: acetaminophen 325 mg Tablet 650 MG PO (20:42)
[2020-03-26] MEDS: citalopram 20 mg Tablet 40 MG PO (20:43)
--- NOTE | 2020-03-26 21:15 | PC.NURSE ---
PRN Tylenol 650 mg PO given for headache. Will continue to monitor pain.
[2020-03-26 22:00] VITALS: BP 118/74; PULSE 67; RESP 16; TEMP 36.7; O2SAT 96
[2020-03-26] MEDS: iohexol 300 mg/mL 100 mL Btl IV (22:06)
--- NOTE | 2020-03-26 22:24 | PC.NURSE ---
IV started using sterile technique to insert a 20g IV catheter to the left AC without difficulty at 2129. Pt escorted to CT Scan at 2154 by security and unit T[employer] LO[employer]. IV removed intact before leaving CT room. Back to unit at 2214.
[2020-03-27 06:00] VITALS: BP 124/88; PULSE 73; RESP 18; TEMP 36.4; O2SAT 97
[2020-03-27 13:15] VITALS: BP 113/76; PULSE 78; RESP 20; TEMP 36.9; O2SAT 97
--- NOTE | 2020-03-27 13:18 | PM.NPN ---
Subjective NPU Subjective: Interval history: Patient states she has been having hot flashes over the past week. She does not know why. Patient states that her headaches have resolved wonders why she had headaches prior to coming into the hospital. She was gratified that her CT scan of her head came back with normal readings. Mental Status Exam MSE Comments: AIM S showed just a hint of cogwheel rigidity but was otherwise negative. This is an overweight, white female, with adequate dress, grooming, and eye contact. No abnormal movements. Cooperative with exam in no acute distress. Speech was decreased rate and volume. Mood described as depressed; affect congruent. Thought process, organized. Thought content: patient denied any suicidal or homicidal ideation, there were no delusions reported or noted. The patient denied having auditory hallucinations. She denied some paranoia. she is a reliable informant and no longer tends to be guarded. Attention, concentration, and memory appear intact but were not formally tested. She is alert and oriented times three. Insight and judgment are limited. Cognition: Patient Appearance: Appropriate Level of Consciousness: Awake, Alert, Appropriate and Follows Commands Patient Cognition Impaired: No Ability to Follow Directions: Excellent Patient Orientation (long list): Person, Place, Month and Year Comprehension Ability: No Impairment Hallucination Type: None Delusion Description: Not Present Thought Process: Appropriate Affect: Affect Description: Calm Behavior: Patient Behavior: Cooperative Speech Pattern: Clear Vitals/I&O/Wt Last Vital Signs Temp 97.6 F 03/27/20 06:00 Pulse 73 03/27/20 06:00 Resp 18 03/27/20 06:00 BP 124/88 03/27/20 06:00 Pulse Ox 97 03/27/20 06:00 Data NPU : 03/21/20 16:07 03/21/20 16:07 A&P Assessment and plan (1) Suicidal ideation: Status: Acute (2) Acute psychosis: Status: Acute (3) Major depression with psychotic features: Status: Acute Additional A&P Information This is a 39 year old, white female, with major depressive disorder, recurrent, severe, with psychotic features, who presents off of her medication, reporting feeling overwhelmed, having paranoia with some recent suicidal thinking. Hospital day #5: It is reasonable that compliance with medication is going to be impaired if she is suffering the stated side effects of fatigue and sleepiness. Unfortunately, even though there was an affidavit on her chart, it did not get progress into a 96-hour involuntary commitment. She does not present an imminent danger of risk to self or others at this time. However she is compliant with treatment and is agreeable to the plan below. We will change Celexa to 40 mg at bedtime. Abilify will be replaced with 5 mg at bedtime with the idea that if noncompliance continues to be a problem, Prolixin Decanoate can be an alternative. Hospital day #6: This is day #1 after initiating Prolixin 5 mg at bedtime. She appears to be tolerating this medication well. It was discovered that there is a family history of cancer in both parents and of a brain tumor and mother. Given the nature of the onset of this degree of psychosis and its refractory status with regard to treatment, a CT scan of the head will be ordered to rule out any mass or central etiology to the psychosis. Hospital day #7: CT scan of the head:FINDINGS:Evaluation of the brain demonstrates no areas of abnormal density. No pathologic enhancement demonstrated following contrast administration. Size of ventricular system appears within normal limits for the patient's stated age. No depressed calvarial fracture is demonstrated. Visualized paranasal sinuses and mastoid air cells demonstrate no significant opacification. AIMS showed just a hint of cogwheel rigidity but was otherwise negative. Patient was complaining of difficulty sleeping last night after the discontinuation of her prazosin and Abilify. We discussed sleep hygiene. Will give trial of doxepin 50 mg at bedtime as needed insomnia. Encourage individual, group, and milieu therapy. Continue q-15 minute checks for safety. Involuntary Hold Information 96 Hour Hold: 96 Hour Involuntary Admission: Yes 96 Hour Hold Ending Date: 03/01/20 96 Hour Hold Ending Time: 21:33 Attestations NPU Medical Necessity Statement*: Patient will remain in the hospital another 2-4 nights for assessment of medication efficacy and tolerability. Coding Level of Care Code Acute Basic Acoustic Analyst for [facility] Diagnoses Suicidal ideation R45.851 Acute psychosis F23 Major depression with psychotic features F32.3
[2020-03-27] MEDS: citalopram 20 mg Tablet 40 MG PO (21:01)
[2020-03-27] MEDS: doxepin 50 mg Capsule PO (21:01)
[2020-03-27 21:33] VITALS: BP 118/82; PULSE 102; RESP 18; TEMP 36.6; O2SAT 94
[2020-03-28 06:00] VITALS: BP 128/74; PULSE 71; RESP 15; TEMP 36.7; O2SAT 96
[2020-03-28 09:07] VITALS: BP 128/74; PULSE 71; RESP 15; TEMP 36.7; O2SAT 96
--- NOTE | 2020-03-28 11:33 | PM.NDC ---
Diagnoses at Discharge Discharge Diagnosis (1) Suicidal ideation: Status: Resolved (2) Acute psychosis: Status: Resolved (3) Major depression with psychotic features: Status: Chronic Reason for Visit Reason for Visit: vaginal bleeding Brief History: HPI Narrative: Chuck is a 39-year-old female who comes in complaining of multiple things. States that she has had a headache for several weeks and this appears to be the issue that she is primarily concerned about. Denies any fever, sudden onset headaches or nausea or vomiting. Patient states she just like to have her headaches checked out. Patient's mother is pulled me aside and states that she has a letter from her daughter stating that she wants to kill herself. She states her daughter has been acting strangely. She says she is noncompliant with medications and her psychologist has stated that she needs to go to the neuropsychiatric unit to be stabilized with the patient has been defiant up to this point. Chuck Jordan is a 39 year old female Jennifer presented to the emergency room complaining of a headache and nausea. Her mother pulled the doctor aside and identified that she had a letter from her daughter stating that she wanted to kill herself, claiming Jennifer was acting strangely, non-compliant with medications, and that her psychologist had stated she needed to go to the NPU for stabilization. Ultimately, she was admitted to the neuropsychiatric unit for definitive treatment of these issues. She presents as a very poor historian, but she did endorse that for reasons that are unclear, she had stopped taking her medication. She was unable to really articulate why that had occurred. In some note, it said that she had been taking it, but according to her she had not. All that being said, I identified that her Abilify dose was only 2 mg and she reports that she did not think the medications had been working that well. We discussed the risks, benefits, and alternatives of increasing her Abilify to 10 mg and she understood and agreed to proceed as is documented in this note. She was not very talkative. She did allow me to review her 02-27-[address] Velazquez and she denies any substantive changes from that time. An excerpt of that note is included to help with historical information. Hospital Course Hospital Course Assessment and plan (1) Suicidal ideation: Status: Acute (2) Acute psychosis: Status: Acute (3) Major depression with psychotic features: Status: Acute Additional A&P Information The patient was admitted to the adult psychiatric unit and entered into the form of individual and group therapies as part of the unit protocol. She was provided 24-hour access to medication supervision and therapeutic activities by trained psychiatric nursing. The patient was educated with regard to potential benefits and side effects of new medications. We agreed to a contingency plan of discontinuation of medication in the event of intolerable side effects. Continue current medication except, increase Abilify to 10 mg po qam. Hospital day #5: It is reasonable that compliance with medication is going to be impaired if she is suffering the stated side effects of fatigue and sleepiness. Unfortunately, even though there was an affidavit on her chart, it did not get progress into a 96-hour involuntary commitment. She does not present an imminent danger of risk to self or others at this time. However she is compliant with treatment and is agreeable to the plan below. We will change Celexa to 40 mg at bedtime. Abilify will be replaced with 5 mg at bedtime with the idea that if noncompliance continues to be a problem, Prolixin Decanoate can be an alternative. Hospital day #6: This is day #1 after initiating Prolixin 5 mg at bedtime. She appears to be tolerating this medication well. It was discovered that there is a family history of cancer in both parents and of a brain tumor and mother. Given the nature of the onset of this degree of psychosis and its refractory status with regard to treatment, a CT scan of the head will be ordered to rule out any mass or central etiology to the psychosis. Hospital day #7: CT scan of the head:FINDINGS:Evaluation of the brain demonstrates no areas of abnormal density. No pathologic enhancement demonstrated following contrast administration. Size of ventricular system appears within normal limits for the patient's stated age. No depressed calvarial fracture is demonstrated. Visualized paranasal sinuses and mastoid air cells demonstrate no significant opacification. AIMS showed just a hint of cogwheel rigidity but was otherwise negative. Patient was complaining of difficulty sleeping last night after the discontinuation of her prazosin and Abilify. We discussed sleep hygiene. Will give trial of doxepin 50 mg at bedtime as needed insomnia. Involuntary Hold Information 96 Hour Hold: 96 Hour Involuntary Admission: Yes 96 Hour Hold Ending Date: 03/01/20 96 Hour Hold Ending Time: 21:33 Mental Status Exam MSE Comments: Discharge Mental Status Exam: Appearance: hygiene is good; no gross neurological deficits., gait is unremarkable; AIMS=0 Speech: Speech is of normal rate and rhythm and easily understood. Thought processes: Thought processes are abstract. Judgment is adequate for safety. Associations: intact Psychotic processes: There is no indication of guarding or paranoia. There is no attention to the internal stimuli. Auditory and visual hallucinations are denied. Judgment: Insight is fair. Problem solving skills are adequate for safety. Orientation: The patient is oriented to person, place time and situation. Memory: no deficits noted in immediate, intermediate, or remote spheres. Attention: The patient is alert and interpersonally engaged. Language: Verbalizations are coherent. Fund of knowledge: Fund of knowledge is adequate. Affect/Mood: Affect is consistent with a euthymic mood. denied suicidal ideation Affective range is appropriate. Psychosis: perception unimpaired except through cognitive distortion; reality testing intact. Discharge Data Data Completed and Pending: Completed Studies During Hospitalization Category Date Time Status CT head wo/w con [id number] Routine Cat Scan 03/26/20 10:59 Completed Vitals: Last Vital Signs Temp 98.1 F 03/28/20 09:07 Pulse 71 03/28/20 09:07 Resp 15 03/28/20 09:07 BP 128/74 03/28/20 09:07 Pulse Ox 96 03/28/20 09:07 Discharge Plan Discharge Patient Disposition: Home Condition: Stable Prescriptions: New doxepin 50 mg Capsule 50 mg PO BEDTIME PRN (Reason: insomnia) Qty: 30 RF: 3 fluphenazine HCl 2.5 mg Tablet 5 mg PO BEDTIME Qty: 30 RF: 3 citalopram 20 mg Tablet 40 mg PO BEDTIME Qty: 30 RF: 4 Continued oxaprozin [Daypro] 600 mg tablet 600 mg PO TID Qty: 14 RF: 0 Discontinued citalopram 40 mg tablet 40 mg PO DAILY Qty: 30 RF: 4 prazosin 1 mg Capsule 1 mg PO BEDTIME Qty: 30 RF: 4 aripiprazole 2 mg Tablet 2 mg PO BEDTIME Qty: 30 RF: 4 Discharge Orders: Discharge Order (Routine); Ordered 03/28/20 Ordered By: Lc Velazquez Referrals: [facility] [Outside] (do request individual therapy if you are interested! ) Marya Nieto MD [[place]] - 04/04/20 2:00 pm [facility], [Primary Care Provider] - Patient Instructions: Doxepin (By mouth), Fluoxetine (By mouth), Citalopram (By mouth) Discharge Attestations NPU Time Spent in Discharge Care*: greater than 30 min Coding Level of Care Code Acute Marketing Analytics Lead for [facility] Fwd Diagnoses Suicidal ideation R45.851 Acute psychosis F23 Major depression with psychotic features F32.3
--- NOTE | 2020-03-28 11:51 | PC.NURSE ---
home meds home meds called into [facility] pharmacy per patient and her mother. Nurse spoke with
== END 2020-03-28 12:18 | disposition home or self-care (01) | DRG 885 ==
LOC: ER 17:54 → NP 18:27
PROVIDERS: Emergency Medicine; Admitting Provider Psychiatry & Neurology Psychiatry; Visit Provider Psychiatry & Neurology Psychiatry
DX: F23 Brief psychotic disorder (principal); R45.851 Suicidal ideations; Z91.14 Patient's other noncompliance with medication regimen; Z87.891 Personal history of nicotine dependence; F33.3 Major depressive disorder, recurrent, severe with psychotic symptoms; R51 Headache
CPT/HCPCS: 12345; 36415; 70470; 80053; 80156; 80164; 80178; 80185; 80306; 80307; 81001; 84443; 84703; 85025; 85610; 93005; 99284; Q9967

== ENCOUNTER 2020-04-06 19:54 | Emergency (ER) | payer SELFPAY ==
[2020-04-06 19:55] VITALS: BP 157/93; PULSE 90; RESP 17; TEMP 37.3; O2SAT 96; BMI 28.3
[2020-04-06 20:07] VITALS: BP 148/88; PULSE 81; RESP 15; O2SAT 96
[2020-04-06 21:47] VITALS: BP 140/90; PULSE 75; RESP 14; O2SAT 96
--- NOTE | 2020-04-06 22:13 | ED_ITS ---
HPI - General Adult General: Chief complaint: General Medical Stated complaint: HTN/ BLURRED VISION Time Seen by Provider: 04/06/20 20:11 History of Present Illness: HPI narrative: This patient is a 39-year-old female who presents today with a chief complaint of feeling out of it today. She tells me that her blood pressure was running very low at home. Her mother later came into the room and said that actually her blood pressure has been running high at home. She said it was running around 150s systolic. The reason that they had checked it at home was that the patient was acting a little bit strange and then said that she had gone blind and could not see. The patient was in the [facility] recently and discharged roughly a week ago. Medications were changed at that time although she did not get them filled until Wednesday. Since then her counselor has recommended changing the doses around a few times. Her mother thinks that may be the problem is her new medication, fluphenazine. The patient's now back to normal. She is not having any neurologic complaints now and in fact no complaints at all. Associated symptoms: Deny chest pain, dyspnea, headache(s), malaise, nausea, rash or vomiting Review of Systems General: Reports: 10 or more systems reviewed and unremarkable except in HPI and below Const: Denies: fever(s), chills, fatigue or malaise Eyes: Reports: change in vision ENMT: Denies: odynophagia Card: Denies: chest pain or swelling of feet/ankles Resp: Denies: dyspnea, productive cough or non-productive cough GI: Denies: abdominal pain, nausea or vomiting : Denies: flank pain or difficulty voiding Musc: Denies: neck pain or back pain Skin/Breast: Denies: rash Neuro: Denies: headache(s), numbness in extremities or weakness in extremities Dilan/Lymph: Denies: easy bruising or easy bleeding PFSH ED PFSH: Social History Smoking and tobacco status: former smoker Current gender identity: Female Female Reproductive History: Date of last menstrual period: 03/21/20 Physical Exam Const: COMMON NORMALS: no acute distress, patient oriented x3, no limitations and alert GENERAL APPEARANCE: cooperative and comfortable HENMT: HEAD & SCALP: normal to inspection FACE & SINUS: normal facial exam Eye: GENERAL EYE: appearance normal, both eyes and all related structures Neck/C-Spine: COMMON NORMALS: supple, no meningeal signs and no JVD Chest: COMMONS NORMALS: normal inspection of the chest Resp: COMMON NORMALS: normal respiratory effort, No use of accessory muscles and clear to auscultation bilaterally AUSCULTATION: clear to auscultation bi laterally Cardio: COMMON NORMALS: no JVD, regular rate, regular rhythm and No murmurs present (Cardio) RATE: regular rate RHYTHM: regular rhythm GI: COMMON NORMALS: Normal to inspection, nondistended, normoactive bowel sounds present, Soft to palpation and non-tender INSPECTION: Yes normal to inspection AUSCULTATION: Yes normoactive bowel sounds PALPATION: Yes Soft to palpation Back/Pelvis: COMMON NORMALS: thoracic and lumbar spine normal to inspection Extremity: COMMON NORMALS: normal to inspection Neuro: COMMON NORMALS: patient oriented x3, moves all extremities, no focal motor deficits and no sensory deficits noted SENSORIUM/ORIENTATION: Yes alert MENINGEAL SIGNS: Yes no meningeal signs Psych: COMMON NORMALS: mental status grossly normal and cooperative MOOD & AFFECT: Yes Flat affect present Skin: COMMON NORMALS: no rashes or lesions noted and turgor normal GENERAL SKIN EXAM: no rashes or lesions noted and turgor normal Course ED course: Patient with a normal exam now. Blood pressure is not concerning although borderline high. This could be a medication reaction. She is on several medications that could potentially interact. Im going to check some basic labs to make sure her electrolytes are normal and if they are I will discharge her home. I will have her stop the new medication and follow-up with her counselor to discuss alternatives. Vital Signs: Vital signs: Vital Signs Temperature 99.1 F 04/06/20 19:55 Pulse Rate 78 04/06/20 22:42 Respiratory Rate 14 04/06/20 22:42 Blood Pressure 131/77 04/06/20 22:42 Pulse Oximetry 96 04/06/20 22:42 [facility] - General Adult Lab Data: Labs: Lab Results 04/06/20 04/06/20 Range/Units 21:50 21:50 WBC 7.8 (4.0-10.0) 10^3/ uL RBC 4.52 (4.1-5.3) 10^6/u L Hgb 13.8 (11.5-15.3) g/dL Hct 41.4 (37.0-47.0) % MCV 91.6 (81-99) fL MCH 30.5 (28.0-34.0) pg MCHC 33.3 (30.0-36.0) g/dL RDW 11.9 L (12.1-15.1) % Plt Count 299 (130-400) 10^3/c mm MPV 10.7 H (7.4-10.4) fL Neut % (Auto) 68.9 % Lymph % (Auto) 23.3 % [place] % (Auto) 5.8 % Eos % (Auto) 1.2 % Baso % (Auto) 0.5 % Neut # (Auto) 5.39 (1.8-7.7) 10^3/u L Lymph # (Auto) 1.8 (0.8-4.8) 10^3/u L [place] # (Auto) 0.5 (0.2-0.9) 10^3/u L Eos # (Auto) 0.1 (0.0-0.8) 10^3/u L Baso # (Auto) 0.0 (0.0-0.1) 10^3/u L Nucleated RBC % (a uto) 0 % Nucleated RBCs # 0.0 /100WBC Sodium 139 (136-145) mmol/L Potassium 3.6 (3.5-5.1) mmol/L Chloride 102 (98-107) mmol/L Carbon Dioxide 26 (22-29) mmol/L Anion Gap 14.6 (5-19) BUN 8 (6-20) mg/dL Creatinine 0.5 (0.5-0.9) mg/dL GFR Calculation 137.4 H (90-130) mL/min Glucose 84 (65-115) mg/dL Calculated Osmolal ity 283 L (285-295) mOsm/k g Calcium 9.1 (8.5-10.5) mg/dL Total Bilirubin 0.3 (0.15-1.2) mg/dL AST 19 (0-32) U/L ALT 45 H (0-33) U/L Alkaline Phosphata se 50 (35-105) IU/L Total Protein 7.8 (6.6-8.7) g/dL Albumin 4.7 (3.5-5.2) g/dL Globulin 3.1 (1.3-4.6) g/dL Discharge Plan Discharge Patient Disposition: Home Condition: Stable Prescriptions: No Action fluphenazine HCl 5 mg tablet 5 mg PO BID 30 Days Qty: 60 RF: 3 oxaprozin [Daypro] 600 mg tablet 600 mg PO TID Qty: 14 RF: 0 doxepin 50 mg Capsule 50 mg PO BEDTIME PRN (Reason: insomnia) Qty: 30 RF: 3 citalopram 20 mg Tablet 40 mg PO BEDTIME Qty: 30 RF: 4 Discharge Orders: Discharge Order (Routine); Ordered 04/06/20 Ordered By: Margarita Gonzalez Referrals: [facility], [Primary Care Provider] - Discharge Diet: Usual diet Discharge Activity: Resume usual activity Activity Restrictions/Additional Instructions: Stop taking the new medication until you are able to speak with the counselor about it and about the side effects. Continue your other regular medications. Return to the ED if further problems with vision or other new or concerning symptoms. 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
[2020-04-06 22:23] LABS: Basophils % 0.5 %; Eosinophils # 0.1 10^3/uL (0.0-0.8); Eosinophils % 1.2 %; Hematocrit 41.4 % (37.0-47.0); Hemoglobin 13.8 g/dL (11.5-15.3); Lymphocytes # 1.8 10^3/uL (0.8-4.8); Lymphocytes % 23.3 %; Mean Corpuscular HGB Conc 33.3 g/dL (30.0-36.0); Mean Corpuscular Hemoglobin 30.5 pg (28.0-34.0); Mean Corpuscular Volume 91.6 fL (81-99); Mean Platelet Volume 10.7 fL (7.4-10.4); Monocytes # 0.5 10^3/uL (0.2-0.9); Monocytes % 5.8 %; Neutrophils # 5.39 10^3/uL (1.8-7.7); Neutrophils % 68.9 %; Nucleated Red Blood Cells % 0 %; Platelet Count 299 10^3/cmm (130-400); Red Blood Count 4.52 10^6/uL (4.1-5.3); Red Cell Distribution Width 11.9 % (12.1-15.1); White Blood Count 7.8 10^3/uL (4.0-10.0)
[2020-04-06 22:42] VITALS: BP 131/77; PULSE 78; RESP 14; O2SAT 96
[2020-04-06 22:46] LABS: Alanine Aminotransferase 45 U/L (0-33); Albumin Level 4.7 g/dL (3.5-5.2); Alkaline Phosphatase 50 IU/L (35-105); Anion Gap 14.6 (5-19); Aspartate Amino Transferase 19 U/L (0-32); Blood Urea Nitrogen 8 mg/dL (6-20); Calcium 9.1 mg/dL (8.5-10.5); Carbon Dioxide 26 mmol/L (22-29); Chloride 102 mmol/L (98-107); Creatinine Clr Calc Pharmacy 138.7498; Globulin 3.1 g/dL (1.3-4.6); Glomerular Filtration Rate 137.4 mL/min (90-130); Glucose 84 mg/dL (65-115); Osmolality Calculated 283 mOsm/kg (285-295); Potassium 3.6 mmol/L (3.5-5.1); Sodium 139 mmol/L (136-145); Total Bilirubin 0.3 mg/dL (0.15-1.2); Total Protein 7.8 g/dL (6.6-8.7)
[2020-04-06 23:02] VITALS: BP 136/85; PULSE 82; RESP 16; O2SAT 96
== END 2020-04-06 23:04 | disposition home or self-care (01) ==
PROVIDERS: Emergency Provider Emergency Medicine
DX: I10 Essential (primary) hypertension (principal); H53.8 Other visual disturbances; Z87.891 Personal history of nicotine dependence
CPT/HCPCS: 12345; 80053; 85025; 99282

== ENCOUNTER → 2020-12-03 15:23 | Outpatient (BNVA) | payer OTHER, SELFPAY | PROVIDERS: Visit Provider Psychiatry & Neurology Psychiatry | DX: F32.3 Major depressive disorder, single episode, severe with psychotic features (principal); Z79.899 Other long term (current) drug therapy; Z03.89 Encounter for observation for other suspected diseases and conditions ruled out; F22 Delusional disorders | CPT/HCPCS: 80053; 80061; 83036; 84443; 85025 ==

== ENCOUNTER → 2021-05-01 15:13 | Outpatient (BNVA) | payer OTHER, SELFPAY | PROVIDERS: Visit Provider Psychiatry & Neurology Psychiatry | DX: Z79.899 Other long term (current) drug therapy (principal); F32.3 Major depressive disorder, single episode, severe with psychotic features | CPT/HCPCS: 84439; 84443 ==

== ENCOUNTER → 2021-12-25 14:01 | Outpatient (BNVA) | payer OTHER, SELFPAY | PROVIDERS: Visit Provider Psychiatry & Neurology Psychiatry | DX: F41.9 Anxiety disorder, unspecified (principal); F32.3 Major depressive disorder, single episode, severe with psychotic features; Z79.899 Other long term (current) drug therapy | CPT/HCPCS: 80053; 80061; 83036; 84443 ==

== ENCOUNTER → 2022-09-22 14:20 | Outpatient (BNVA) | payer OTHER, SELFPAY | PROVIDERS: PCP Internal Medicine; Visit Provider Psychiatry & Neurology Psychiatry | DX: Z79.899 Other long term (current) drug therapy (principal); F41.9 Anxiety disorder, unspecified; F32.3 Major depressive disorder, single episode, severe with psychotic features | CPT/HCPCS: 80053; 80061; 83036; 84443 ==

== ENCOUNTER 2022-12-11 20:00 | Emergency (ER) | payer MEDICAID, SELFPAY ==
[2022-12-11 20:11] VITALS: BP 148/98; PULSE 91; RESP 14; TEMP 36.7; O2SAT 95; BMI 34.2
--- NOTE | 2022-12-11 21:16 | ED_ITS ---
HPI - Nausea/Vomiting/Diarrhea General: Chief complaint: Nausea/Vomiting/Diarrhea Stated complaint: n/v for weeks Time Seen by Provider: 12/11/22 21:16 History of Present Illness: Ms. Alex is a 42-year-old lady presenting to the emergency department for recurrent nausea and vomiting. She reports gradual onset of symptoms approximately 1 month ago and subsequently has now developed symptoms anytime she eats. She reports vomiting mostly undigested food. She denies a feeling of food stuck in throat however does report a history of sometimes pills getting stuck with swallowing and worse symptoms at night. Intensity symptoms when present is moderate to severe. No associated abdominal pain with vomiting/nausea outside of the context of eating. No other specific changes in health, exacerbating, or alleviating factors identified. Review of Systems General: Reports: 10 or more systems reviewed and unremarkable except in HPI and below PFSH ED PFSH: Medical History Anxiety Delusions Other detention (current) drug therapy Psychiatric care Social History Smoking and tobacco status: former smoker Substance/Drug Use: never Current gender identity: Female Physical Exam Const: COMMON NORMALS: alert GENERAL APPEARANCE: cooperative and well developed HENMT: COMMON NORMALS: normocephalic and atraumatic HEAD & SCALP: normocephalic and atraumatic THROAT: posterior oropharynx normal Eye: COMMON NORMALS: conjunctivae normal CONJUNCTIVA: Yes conjunctivae normal SCLERA: sclerae normal Neck/C-Spine: COMMON NORMALS: supple GENERAL: Yes trachea midline Resp: COMMON NORMALS: normal respiratory effort and clear to auscultation bilaterally EFFORT & INSPECTION: Yes able to speak in complete sentences AUSCULTATION: clear to auscultation bilaterally Cardio: COMMON NORMALS: regular rate and regular rhythm RATE: regular rate RHYTHM: regular rhythm GI: COMMON NORMALS: Soft to palpation PALPATION: Yes Soft to palpation and No Tenderness to palpation present (GI) Extremity: GENERAL: Yes normal exam except as noted and No edema Neuro: COMMON NORMALS: moves all extremities SENSORIUM/ORIENTATION: Yes alert and No Orientation impaired Psych: COMMON NORMALS: mental status grossly normal and Normal thought process present THOUGHT PROCESS: Normal thought process present Course Vital Signs: Vital signs: Vital Signs Temperature 98.0 F 12/11/22 20:11 Pulse Rate 77 12/12/22 00:04 Respiratory Rate 18 12/11/22 23:30 Blood Pressure 146/99 12/11/22 23:30 Pulse Oximetry 97 12/12/22 00:04 Oxygen Delivery Me thod Room Air 12/11/22 23:30 MDM - Nausea/Vomiting/Diarrhea Medical Decision Making 42-year-old lady presenting with nausea and vomiting ongoing for 1 month. Exam as above with benign abdominal exam and patient is nontoxic. There is no evidence of posterior pharyngeal abnormality as visualized. Essentially unremarkable hematologic and metabolic panel without clear abnormality to explain symptoms. Chest x-ray with no lobar consolidation or pneumothorax. Attempted p.o. contrast however unable to adequately visualize esophageal structures due to timing with x-ray. Given exam and history patient is appropriate for outpatient management and I discussed the need for endoscopy for further characterization. The results of ED evaluation were discussed with the patient including prescriptions and/or symptomatic cares (if applicable) including appropriate and responsible use, followup plan, and return precautions. The patient verbalized understanding and felt safe for discharge. Medical Records I reviewed the patient's medical records. Lab Data I reviewed the patient's lab results. 12/11/22 22:19 12/11/22 22:19 Radiology Impressions Chest X-Ray 12/11/22 22:38 IMPRESSION: No acute findings. Laboratory Results WBC 6.2 10^3/uL (4.0-10.0) 12/11/22 22: RBC 4.51 10^6/uL (4.1-5.3) 12/11/22 22: Hgb 13.4 g/dL (11.5-15.3) 12/11/22 22: Hct 38.8 % (37.0-47.0) 12/11/22 22: MCV 86.0 fl (81-99) 12/11/22 22: MCH 29.7 pg (28.0-34.0) 12/11/22 22: MCHC 34.5 g/dL (30.0-36.0) 12/11/22 22: RDW 12.5 % (12.1-15.1) 12/11/22 22: Plt Count 209 10^3/cmm (130-400) 05/19/23 22:19 MPV 9.0 fL (7.4-10.4) 12/11/22 22:19 Neut % (Auto) 67.8 % 12/11/22 22:19 Lymph % (Auto) 25.4 % 12/11/22 22:19 [place] % (Auto) 4.9 % 12/11/22 22:19 Eos % (Auto) 0.8 % 12/11/22 22:19 Baso % (Auto) 0.8 % 12/11/22 22:19 Neut # (Auto) 4.19 10^3/uL (1.8-7.7) 12/11/22 22:19 Lymph # (Auto) 1.6 10^3/uL (0.8-4.8) 12/11/22 22:19 [place] # (Auto) 0.3 10^3/uL (0.2-0.9) 12/11/22 22:19 Eos # (Auto) 0.1 10^3/uL (0.0-0.8) 12/11/22 22:19 Baso # (Auto) 0.1 10^3/uL (0.0-0.1) 12/11/22 22:19 Nucleated RBC % (auto) 0 % 12/11/22 22:19 Nucleated RBCs # 0.0 /100WBC 12/11/22 22:19 Sodium 138 mmol/L (136-145) 12/11/22 22:19 Potassium 3.5 mmol/L (3.5-5.1) 12/11/22 22:19 Chloride 101 mmol/L (98-107) 12/11/22 22:19 Carbon Dioxide 27 mmol/L (22-29) 12/11/22 22:19 Anion Gap 13.5 (5-19) 12/11/22 22:19 BUN 8 mg/dL (6-20) 12/11/22 22:19 Creatinine 0.9 mg/dL (0.5-0.9) 12/11/22 22:19 GFR Calculation 68.7 mL/min (90-130) L 12/11/22 22:19 Glucose 87 mg/dL (65-115) 12/11/22 22:19 Calculated Osmolality 284 mOsm/kg (285-295) L 12/11/22 22:19 Calcium 9.3 mg/dL (8.5-10.5) 12/11/22 22:19 Total Bilirubin 0.6 mg/dL (0.15-1.2) 12/11/22 22:19 AST 18 U/L (0-32) 12/11/22 22:19 ALT 32 U/L (0-33) 12/11/22 22:19 Alkaline Phosphatase 55 U/L (35-105) 12/11/22 22:19 Total Protein 7.2 g/dL (6.6-8.7) 12/11/22 22:19 Albumin 4.2 g/dL (3.5-5.2) 12/11/22 22:19 Globulin 3.0 g/dL (1.3-4.6) 12/11/22 22:19 Lipase 35 U/L (13-60) 12/11/22 22:19 Discharge Plan Discharge Patient Disposition: Home Clinical Impression: Nausea and vomiting, Dysphagia Condition: Stable Prescriptions: New Reglan 10 mg tablet 10 mg PO Q6H PRN (Reason: nausea and vomiting) Qty: 30 0RF No Action mirtazapine 30 mg tablet 30 mg PO .qhs 30 Days Qty: 30 4RF risperidone 1 mg tablet 1 mg PO .qhs 30 Days Qty: 30 4RF Rx Instructions: Take one tablet daily at bedtime doxycycline hyclate 100 mg tablet 100 mg PO BID 7 Days Qty: 14 0RF Discharge Orders: Discharge ED (Routine); Ordered 12/11/22 Ordered By: Mike Jacob Referrals: Makeda Archuleta MD [Primary Care Provider] - Discharge Diet: Advance as tolerated and Clear Liquid Discharge Activity: Increase activity as tolerated Patient Instructions: Acute Nausea and Vomiting (ED), Dysphagia (ED) Activity Restrictions/Additional Instructions: Thank you for visiting the emergency department. You were seen and evaluated for nausea and vomiting. The exact cause of your symptoms is unclear though davis s require further outpatient management and evaluation likely with endoscopy. I will message case management as discussed for follow-up. I will also prescribe antinausea medication. Please follow-up with your primary care provider. Return to the emergency department for anything that you are concerned about and feel needs emergency department evaluation. 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
[2022-12-11 21:52] VITALS: BP 157/85; PULSE 75; RESP 18; O2SAT 98
[2022-12-11 22:21] VITALS: BP 151/101; PULSE 75; RESP 18; O2SAT 98
[2022-12-11 22:24] LABS: Basophils # 0.1 10^3/uL (0.0-0.1); Basophils % 0.8 %; Eosinophils # 0.1 10^3/uL (0.0-0.8); Eosinophils % 0.8 %; Hematocrit 38.8 % (37.0-47.0); Hemoglobin 13.4 g/dL (11.5-15.3); Lymphocytes # 1.6 10^3/uL (0.8-4.8); Lymphocytes % 25.4 %; Mean Corpuscular HGB Conc 34.5 g/dL (30.0-36.0); Mean Corpuscular Hemoglobin 29.7 pg (28.0-34.0); Monocytes # 0.3 10^3/uL (0.2-0.9); Monocytes % 4.9 %; Neutrophils # 4.19 10^3/uL (1.8-7.7); Neutrophils % 67.8 %; Nucleated Red Blood Cells % 0 %; Platelet Count 209 10^3/cmm (130-400); Red Blood Count 4.51 10^6/uL (4.1-5.3); Red Cell Distribution Width 12.5 % (12.1-15.1); White Blood Count 6.2 10^3/uL (4.0-10.0)
[2022-12-11 22:30] VITALS: BP 141/79; PULSE 78; O2SAT 98
--- NOTE | 2022-12-11 22:38 | XRR_ITS ---
PROCEDURE INFORMATION: Exam: XR Chest Exam date and time: 12/11/2022 10:44 PM Age: 42 years old Clinical indication: Other: Esophagus; Patient HX: Contrast given orally while image was taken, 2 images sent. PT states no pain during ingestion; Additional info: Progressive dysphagia, p. O. Contrast TECHNIQUE: Imaging protocol: Radiologic exam of the chest. Views: 1 view. Other contrast: Oral, Gastrografin, 30; COMPARISON: CR XR chest 1V portable [id number] 11/22/2019 9:19 PM FINDINGS: Lungs: Mild hypoinflation. No consolidation. Pleural spaces: Unremarkable. No pleural effusion. No pneumothorax. Heart/Mediastinum: Stable heart size. Bones/joints: Stable bones. XR/XR chest 1V portable [id number] IMPRESSION: No acute findings.
[2022-12-11 22:42] LABS: Alanine Aminotransferase 32 U/L (0-33); Albumin Level 4.2 g/dL (3.5-5.2); Alkaline Phosphatase 55 U/L (35-105); Anion Gap 13.5 (5-19); Aspartate Amino Transferase 18 U/L (0-32); Blood Urea Nitrogen 8 mg/dL (6-20); Calcium 9.3 mg/dL (8.5-10.5); Carbon Dioxide 27 mmol/L (22-29); Chloride 101 mmol/L (98-107); Glomerular Filtration Rate 68.7 mL/min (90-130); Glucose 87 mg/dL (65-115); Lipase 35 U/L (13-60); Osmolality Calculated 284 mOsm/kg (285-295); Potassium 3.5 mmol/L (3.5-5.1); Sodium 138 mmol/L (136-145); Total Bilirubin 0.6 mg/dL (0.15-1.2); Total Protein 7.2 g/dL (6.6-8.7)
[2022-12-11 23:00] VITALS: PULSE 66; O2SAT 98
[2022-12-11] MEDS: diatrizoate meglumine 120 mL Sol PO (23:17)
[2022-12-11 23:30] VITALS: BP 146/99; PULSE 65; RESP 18; O2SAT 98
[2022-12-12 00:04] VITALS: PULSE 77; O2SAT 97
--- NOTE | 2022-12-13 05:04 | DCPLANNER ---
Addendum entered by Calli Saleh 01/29/23 10:55: Patient had a follow up appointment scheduled with general surgery - patient did attend appointment. Addendum entered by Calli Saleh 12/21/22 10:24: Patient has a follow up appointment scheduled for Wednesday, January 13, 2023 at 1:[address] Caro at general surgery. Original Note: patient accounts manager had message to schedule a follow up appointment for patient with general surgery. patient accounts manager sent patients information to the front office staff at general surgery. Patients information will be printed and reviewed. Clinic will call patient with appointment information.
== END 2022-12-12 00:04 | disposition home or self-care (01) ==
PROVIDERS: Emergency Provider Emergency Medicine; PCP Internal Medicine
DX: R11.2 Nausea with vomiting, unspecified (principal); R13.10 Dysphagia, unspecified
CPT/HCPCS: 36415; 71045; 80053; 83690; 85025; 99284; Q9963

== ENCOUNTER 2023-06-04 14:23 | Outpatient (CLI) | payer MEDICAID, SELFPAY ==
--- NOTE | 2023-06-04 14:50 | MM_ITS ---
WS: [id number] BILATERAL 3D TOMOSYNTHESIS DIGITAL SCREENING MAMMOGRAPHY WITH CAD CLINICAL INFORMATION: SCR HISTORY: Screening mammogram. No current complaints. COMPARISON: Baseline TECHNIQUE: Bilateral CC and MLO views. FINDINGS: The breasts are composed of heterogeneous fibroglandular density tissue, which can limit the detectio n of small underlying mass lesions. No suspicious mass, asymmetry, calcifications, or architectural d istortion. No evidence of malignancy. Incidental punctate and lucent centered calcifications. IMPRESSION: MM/[place] [id number] BI-RADS: 2-Benign FOLLOW UP: 1 Year Follow-up Recommend return to annual screening mammography.
== END 2023-06-04 14:24 | disposition home or self-care (01) ==
LOC: RAD 14:24
PROVIDERS: PCP Internal Medicine; Visit Provider Nurse Practitioner Family
DX: Z12.31 Encounter for screening mammogram for malignant neoplasm of breast (principal)
CPT/HCPCS: 77063; 77067

== ENCOUNTER 2024-01-17 17:20 | Outpatient (CLI) | payer MEDICAID, SELFPAY ==
--- NOTE | 2024-01-17 17:28 | XRR_ITS ---
PROCEDURE INFORMATION: Exam: XR Abdomen Exam date and time: 01/17/2024 5:35 PM Age: 43 years old Clinical indication: Vomiting; Additional info: Posprandial vomiting TECHNIQUE: Imaging protocol: Radiologic exam of the abdomen. Views: Frontal supine view of the abdomen. 1 View. COMPARISON: CT abdomen pelvis w con* [id number] 03/03/2020 10:32 PM FINDINGS: Gastrointestinal tract: Normal. No bowel dilation. Bones/joints: There is a 5 mm rounded calcification adjacent to the left transverse process of L5, suspicious for a phlebolith XR/XR KUB [id number] IMPRESSION: No acute abnormality
== END 2024-01-17 17:21 | disposition home or self-care (01) ==
LOC: RAD 17:22
PROVIDERS: PCP Internal Medicine; Visit Provider Nurse Practitioner Family
DX: R11.10 Vomiting, unspecified (principal)
CPT/HCPCS: 74018

== ENCOUNTER → 2024-06-26 15:26 | Outpatient (BNVA) | payer MEDICAID, SELFPAY | PROVIDERS: PCP Internal Medicine; Visit Provider Nurse Practitioner | DX: Z79.899 Other long term (current) drug therapy (principal) | CPT/HCPCS: 80061; 83036 ==

== ENCOUNTER 2024-07-09 16:16 | Emergency (ER) | payer MEDICAID, OTHER, SELFPAY ==
[2024-07-09 16:43] VITALS: BP 142/91; PULSE 99; RESP 16; TEMP 36.8; O2SAT 95
[2024-07-09 17:37] LABS: Basophils % 0.7 %; Eosinophils # 0.1 10^3/uL (0.0-0.8); Hematocrit 42.1 % (36-47); Lymphocytes # 1.6 10^3/uL (0.8-4.8); Lymphocytes % 28.6 %; Mean Corpuscular HGB Conc 33.7 g/dL (30-55); Mean Corpuscular Hemoglobin 30.4 pg (27-33); Mean Corpuscular Volume 90.1 fl (85-98); Mean Platelet Volume 9.7 fL (7.4-10.4); Monocytes # 0.3 10^3/uL (0.2-0.9); Monocytes % 5.2 %; Neutrophils # 3.69 10^3/uL (1.8-7.7); Neutrophils % 64.3 %; Nucleated Red Blood Cells % 0 %; Platelet Count 229 10^3/cmm (157-399); Red Blood Count 4.67 10^6/uL (3.85-5.65); Red Cell Distribution Width 12.3 % (12.1-15.1); White Blood Count 5.74 10^3/uL (3.29-11.43)
[2024-07-09 17:44] LABS: HCG, Serum Qual Negative (Negative)
[2024-07-09 17:54] LABS: Alanine Aminotransferase 41 U/L (0-33); Albumin Level 4.4 g/dL (3.5-5.2); Alkaline Phosphatase 50 U/L (35-105); Anion Gap 18.5 (5-19); Aspartate Amino Transferase 29 U/L (0-32); Blood Urea Nitrogen 12 mg/dL (6-20); Calcium 9.8 mg/dL (8.5-10.5); Carbon Dioxide 25 mmol/L (22-29); Chloride 102 mmol/L (98-107); Creatinine Clr Calc Pharmacy 93.6979; Globulin 3.5 g/dL (1.3-4.6); Glomerular Filtration Rate 91.3 mL/min (90-130); Glucose 142 mg/dL (65-115); Lipase 25 U/L (13-60); Osmolality Calculated 296 mOsm/kg (285-295); Potassium 3.5 mmol/L (3.5-5.1); Sodium 142 mmol/L (136-145); Total Bilirubin 0.5 mg/dL (0.15-1.2); Total Protein 7.9 g/dL (6.6-8.7)
--- NOTE | 2024-07-09 22:54 | W.ED.NAVMDI ---
HPI - Nausea/Vomiting/Diarrhea General: Chief complaint: Nausea/Vomiting/Diarrhea Stated complaint: n/v when eating Time Seen by Provider: 07/09/24 22:48 History of Present Illness: Patient is a 43-year-old female that presents to the emergency department with 2-year history of nausea and vomiting intermittently when she eats. Patient has a primary care doctor but has not seen them recently. Patient is also been evaluated by Dr. Caro in the past and referral was sent for an EGD. Patient has not followed up with this exam as of yet. Patient denies taking any medications for nausea or vomiting. She denies blood in her vomitus Associated symtoms: Denies change in vision, chest pain, dysuria or fatigue Related Data Previous Rx's Medication Instructions Recorded metoclopramide HCl 10 mg tablet 10 mg PO Q6H PRN nausea and 12/11/22 (Reglan) vomiting #30 tabs ibuprofen 800 mg tablet 800 mg PO Q8H PRN pain #45 tabs 10/01/23 mirtazapine 45 mg tablet 45 mg PO .qhs 30 days #30 tabs 06/26/24 risperidone 2 mg tablet 2 mg PO .HS #30 tabs 06/26/24 ondansetron 4 mg disintegrating 4 mg PO Q8H PRN nausea and 07/09/24 tablet vomiting 10 days #30 tabs Allergies Allergy/AdvReac Type Severity Reaction Status Date / Time No Known Allergies Allergy Verified 07/09/24 16:48 Review of Systems General: Reports: 10 or more systems reviewed and unremarkable except in HPI and below Const: Denies: fever(s), chills, change in weight or fatigue Eyes: Denies: change in vision ENMT: Denies: odynophagia Card: Denies: chest pain Resp: Denies: dyspnea GI: Denies: abdominal pain, dysphagia or hematochezia : Denies: dysuria Skin/Breast: Denies: rash, nipple discharge or breast mass Neuro: Denies: seizure-like activity Dilan/Lymph: Denies: easy bruising PFSH ED PFSH: Medical History Anxiety Psychiatric care Other predatory animal exterminator (current) drug therapy Delusions Social History (Reviewed 10/01/23 @ 17:58 by MATTI Woods Smoking and tobacco/nicotine status: former use of tobacco/nicotine Substance/Drug Use: never Current gender identity: Female Physical Exam Const: COMMON NORMALS: no acute distress, patient oriented x3 and alert GENERAL APPEARANCE: cooperative ORIENTATION/CONSCIOUSNESS: Yes awake, Yes oriented to person, Yes oriented to place and Yes oriented to time Neck/C-Spine: COMMON NORMALS: full ROM GENERAL: Yes normal visual inspection Lymph: LYMPHATIC: no lymphadenopathy noted Chest: COMMONS NORMALS: normal inspection of the chest Breast/axilla inspection: Yes no chest deformity, asymmetry, normal contours, no nodules, masses, tenderness Resp: COMMON NORMALS: normal respiratory effort, No retractions and No use of accessory muscles EFFORT & INSPECTION: Yes able to speak in complete sentences and Yes symmetric chest movement Cardio: COMMON NORMALS: regular rate and Peripheral pulses 2+ throughout RATE: regular rate PERIPHERAL PULSES: Peripheral pulses 2+ throughout GI: COMMON NORMALS: Normal to inspection, nondistended, normoactive bowel sounds present, Soft to palpation and non-tender INSPECTION: Yes normal to inspection AUSCULTATION: Yes normoactive bowel sounds PALPATION: Yes Soft to palpation RECTAL EXAM: deferred Extremity: COMMON NORMALS: normal to inspection GENERAL: Yes normal exam except as noted Neuro: COMMON NORMALS: patient oriented x3 SENSORIUM/ORIENTATION: Yes alert, Yes oriented to person, Yes oriented to place and Yes oriented to time CRANIAL NERVES: Yes CN normal except as noted Psych: COMMON NORMALS: mental status grossly normal, Normal thought process present, cooperative, activity/motor behavior normal, denies homicidal ideation and denies suicidal ideation THOUGHT PROCESS: Normal thought process present Course Vital Signs: Vital signs: Vital Signs Temperature 98.2 F 07/09/24 16:43 Pulse Rate 99 07/09/24 16:43 Respiratory Rate 16 07/09/24 16:43 Blood Pressure 142/91 07/09/24 16:43 Pulse Oximetry 95 07/09/24 16:43 Oxygen Delivery Me thod Room Air 07/09/24 16:43 MDM - Nausea/Vomiting/Diarrhea Medical Decision Making Patient evaluated in the emergency department today for nausea vomiting after a meal. Patient reports symptoms have been going on for 2 years. Underwent laboratory evaluation which reveals no significant abnormality with CBC, CMP, lipase. Patient is hCG negative. Patient is can be discharged home with Zofran. No additional diagnostics are warranted at this time. Encourage patient to follow-up with primary care doctor so they can arrange follow-up for further evaluation Lab Data 07/09/24 17:11 07/09/24 17:11 Laboratory Results WBC 5.74 10^3/uL (3.29-11.43) 07/09/24 17:11 RBC 4.67 10^6/uL (3.85-5.65) 07/09/24 17:11 Hgb 14.20 g/dL (11.27-16.99) 07/09/24 17:11 Hct 42.1 % (36-47) 07/09/24 17:11 MCV 90.1 fl (85-98) 07/09/24 17:11 MCH 30.4 pg (27-33) 07/09/24 17:11 MCHC 33.7 g/dL (30-55) 07/09/24 17:11 RDW 12.3 % (12.1-15.1) 07/09/24 17:11 Plt Count 229 10^3/cmm (157-399) 07/09/24 17:11 MPV 9.7 fL (7.4-10.4) 07/09/24 17:11 Neut % (Auto) 64.3 % 07/09/24 17:11 Lymph % (Auto) 28.6 % 07/09/24 17:11 [place] % (Auto) 5.2 % 07/09/24 17:11 Eos % (Auto) 1.0 % 07/09/24 17:11 Baso % (Auto) 0.7 % 07/09/24 17:11 Neut # (Auto) 3.69 10^3/uL (1.8-7.7) 07/09/24 17:11 Lymph # (Auto) 1.6 10^3/uL (0.8-4.8) 07/09/24 17:11 [place] # (Auto) 0.3 10^3/uL (0.2-0.9) 07/09/24 17:11 Eos # (Auto) 0.1 10^3/uL (0.0-0.8) 07/09/24 17:11 Baso # (Auto) 0.0 10^3/uL (0.0-0.1) 07/09/24 17:11 Nucleated RBC % (auto) 0 % 07/09/24 17:11 Nucleated RBCs # 0.0 /100WBC 07/09/24 17:11 Sodium 142 mmol/L (136-145) 07/09/24 17:11 Potassium 3.5 mmol/L (3.5-5.1) 07/09/24 17:11 Chloride 102 mmol/L (98-107) 07/09/24 17:11 Carbon Dioxide 25 mmol/L (22-29) 07/09/24 17:11 Anion Gap 18.5 (5-19) 07/09/24 17:11 BUN 12 mg/dL (6-20) 07/09/24 17:11 Creatinine 0.7 mg/dL (0.5-0.9) 07/09/24 17:11 GFR Calculation 91.3 mL/min (90-130) 07/09/24 17:11 Glucose 142 mg/dL (65-115) H 07/09/24 17:11 Calculated Osmolality 296 mOsm/kg (285-295) H 07/09/24 17:11 Calcium 9.8 mg/dL (8.5-10.5) 07/09/24 17:11 Total Bilirubin 0.5 mg/dL (0.15-1.2) 07/09/24 17:11 AST 29 U/L (0-32) 07/09/24 17:11 ALT 41 U/L (0-33) H 07/09/24 17:11 Alkaline Phosphatase 50 U/L (35-105) 07/09/24 17:11 Total Protein 7.9 g/dL (6.6-8.7) 07/09/24 17:11 Albumin 4.4 g/dL (3.5-5.2) 07/09/24 17:11 Globulin 3.5 g/dL (1.3-4.6) 07/09/24 17:11 Lipase 25 U/L (13-60) 07/09/24 17:11 HCG, Qual Negative (Negative) 07/09/24 17:11 No radiology studies performed this visit Discharge Plan Discharge Patient Disposition: Home Condition: Stable Prescriptions: New ondansetron 4 mg tablet,disintegrating 4 mg PO Q8H PRN (Reason: nausea and vomiting) 10 Days Qty: 30 0RF No Action ibuprofen 800 mg tablet 800 mg PO Q8H PRN (Reason: pain) Qty: 45 0RF risperidone 2 mg tablet 2 mg PO .HS Qty: 30 2RF mirtazapine 45 mg tablet 45 mg PO .qhs 30 Days Qty: 30 2RF Reglan 10 mg tablet 10 mg PO Q6H PRN (Reason: nausea and vomiting) Qty: 30 0RF Discharge Orders: Discharge ED (Routine); Ordered 07/09/24 Ordered By: Ag Urbano Referrals: Makeda Archuleta MD [Primary Care Provider] - Discharge Diet: Advance as tolerated Discharge Activity: Resume usual activity Patient Instructions: Pain Management, Acute Nausea and Vomiting (ED) Coding Level of Care Code ED Fruit Packer Face And Fill for Clifton Werner
[2024-07-09 23:02] VITALS: BP 121/95; PULSE 91; O2SAT 94
--- NOTE | 2024-07-09 23:03 | PC.NURSE ---
Pt sent home with 1tab 4mg Zofran per TOWEL STRETCHER McTeer.
[2024-07-09] MEDS: ondansetron 4 MG Tablet PO (23:07)
[2024-07-09 23:11] VITALS: BP 121/95; PULSE 93; RESP 16; O2SAT 95
== END 2024-07-09 23:12 | disposition home or self-care (01) ==
PROVIDERS: Emergency Medicine; Emergency Provider Nurse Practitioner; PCP Internal Medicine
DX: R11.2 Nausea with vomiting, unspecified (principal); Z87.891 Personal history of nicotine dependence
CPT/HCPCS: 80053; 83690; 84703; 85025; 99283; Q0162

== ENCOUNTER 2024-08-15 08:56 | Day surgery (SDC) | payer MEDICAID, SELFPAY ==
[2024-08-15 09:08] VITALS: BP 144/100; PULSE 112; RESP 18; TEMP 36.6; O2SAT 97; BMI 29.2
--- NOTE | 2024-08-15 09:50 | P.ANESASSM_ITS ---
Pre-Anesthetic Assessment Height/Weight: Height 5 ft 2 in Weight 160 lb Temp Pulse Resp BP Pulse Ox O2 Del Method 97.9 F 112 H 18 144/100 97 Room Air 08/15/24 09:08 08/15/24 09:08 08/15/24 09:08 08/15/24 09:08 08/15/24 09:08 08/15/24 09:08 Preop Diagnosis: GERD, odynophagia Operation Date: 08/15/24 10:00 Proposed Procedures p EGD 70171, K21.9(Not Applicable) - Patrick Moura MD Was Beta Mery taken within 24 hours: N/A Was Clonidine taken within 24 hours: N/A Last intake: Intake Last Liquid Date 08/14/24 Last Liquid Time 19: Last Solid Date 08/14/24 Last Solid Time 19: Social No alcohol and No tobacco Quit smoking 3 years ago Exam alert, oriented x 3, clear to auscultation bilaterally and regular rate & rhythm Airway Submandibular: within normal limits Cervical ROM: within normal limits Mallampati: Class II Dentition: full Comments: Comments: Poor dentition, denies any loose Anesthetic Plan ASA status: 2 Anesthesia: MAC Other: No prior issues with anesthesia NPO since yesterday Prior smoker Denies any cardiac issues. Preop BP 144/100 Tachycardic HR 112 METs greater than 4 Plan for MAC anesthetic Medications/Allergies Home Medications Medication Instructions Recorded Confirmed Last Taken Type metoclopramide HCl 10 mg tablet 10 mg PO Q6H PRN nausea and 12/11/22 08/15/24 08/14/24 Rx (Reglan) vomiting #30 tabs ibuprofen 800 mg tablet 800 mg PO Q8H PRN pain #45 tabs 10/01/23 08/15/24 Unknown Rx mirtazapine 45 mg tablet 45 mg PO .qhs 30 days #30 tabs 06/26/24 08/15/24 08/14/24 Rx risperidone 2 mg tablet 2 mg PO .HS #30 tabs 06/26/24 08/15/24 08/14/24 Rx pantoprazole 40 mg tablet,delayed 40 mg PO BID 6 weeks #84 tabs 07/27/24 08/15/24 08/14/24 Rx release (Protonix) sucralfate 100 mg/mL oral 10 ml PO BID 8 weeks #1,120 mL 07/27/24 08/15/24 08/14/24 Rx suspension Allergies Allergy/AdvReac Type Severity Reaction Status Date / Time No Known Allergies Allergy Verified 07/27/24 13:44 [facility] Anesthesia Medical History Anxiety Psychiatric care Other half-way (current) drug therapy Delusions Social History Smoking and tobacco/nicotine status: former use of tobacco/nicotine Substance/Drug Use: never Current gender identity: Female Data Anesthesia Cardiac Studies: No Data to Display
--- NOTE | 2024-08-15 09:55 | W.PM.OPSUD ---
Surgery/Procedure H&P Update DATE OF PROCEDURE: August 15, 2024 DATE H&P PERFORMED: 07/27/24 PREOP DIAGNOSIS: GERD, odynophagia PLANNED PROCEDURE: Operation Date: 08/15/24 10:00 Proposed Procedures p EGD 12531, K21.9(Not Applicable) - Patrick Moura MD
[2024-08-15 10:15] VITALS: BP 130/87; PULSE 93; RESP 14; TEMP 36.3; O2SAT 94
[2024-08-15 10:20] VITALS: BP 132/95; PULSE 91; RESP 16; O2SAT 93
[2024-08-15 10:33] VITALS: BP 140/92; PULSE 80; RESP 18; O2SAT 94
--- NOTE | 2024-08-15 10:47 | ANE.PACU2 ---
Inpatient post-anesthesia follow up: Airway intact: Yes Vital signs: Temperature 97.4 F Pulse Rate 80 Respiratory Rate 18 Blood Pressure 140/92 Pulse Oximetry 94 Oxygen Delivery Me thod Room Air Oxygen Flow Rate Fraction of Inspir ed Oxygen Hydration adequate: Yes Nausea and vomiting: No Pain level: 1 Mental status: Baseline
== END 2024-08-15 10:47 | disposition home or self-care (01) ==
PROVIDERS: PCP Internal Medicine; Visit Provider Student in an Organized Health Care Education/Training Program
PROC: 0DJ08ZZ Inspection of Upper Intestinal Tract, Via Natural or Artificial Opening Endoscopic (ICD-10-PCS; principal; 2024-08-15 10:00)
DX: K21.9 Gastro-esophageal reflux disease without esophagitis (principal); R13.10 Dysphagia, unspecified; K29.50 Unspecified chronic gastritis without bleeding; Z87.891 Personal history of nicotine dependence; Z79.899 Other long term (current) drug therapy; R03.0 Elevated blood-pressure reading, without diagnosis of hypertension
CPT/HCPCS: 43239; 88305; 88342; J2704

== ENCOUNTER → 2025-07-03 13:53 | Outpatient (BNVA) | payer MEDICAID, SELFPAY | PROVIDERS: PCP Internal Medicine; Visit Provider Nurse Practitioner | DX: Z79.899 Other long term (current) drug therapy (principal) | CPT/HCPCS: 80061; 83036 ==